=== PATIENT | female | born 1945 | race Caucasian/White ===

== ENCOUNTER → 2016-12-18 | Outpatient (CLI) | payer BC ==
[~2016-12-18] MED LIST: ENALAPRIL MALEATE; Effexor; MELO7.5T; TRHC5025; TRM50T
--- NOTE | 2016-12-18 11:59 | Diagnostic Imaging Report ---
Indication: Cough and shortness of breath over the last 7 days. Comparison study: Chest from 2009. Findings: Frontal and lateral views of the chest demonstrate the lungs to be clear. The heart, mediastinum and pulmonary vascularity are normal. Degenerative changes are present within the spine. There is a compression fracture of T12 which is probably old. Impression: There is a T12 compression fracture which is probably old. The lungs appear normal. Dictated by: Dictated on workstation # [id number]
== END ==
LOC: RAD 11:27
PROVIDERS: ATTEND Family Medicine
DX: R05 Cough (principal); R06.09 Other forms of dyspnea
CPT/HCPCS: 71020

== ENCOUNTER → 2017-12-10 | Outpatient (CLI) | payer BC ==
[~2017-12-10] MED LIST changes: +GADOBUTROL 7.5 MMOL/7.5 ML (GADAVIST) VIAL IV ONE
[2017-12-10 17:20] LABS: BUN/CREATININE RATIO 15; CREATININE SERUM 0.78 MG/DL (0.60-1.30); GFR ESTIMATED > 60
--- NOTE | 2017-12-10 18:39 | Diagnostic Imaging Report ---
PROCEDURE: US Carotid Duplex Bilateral. Indication: Slurred speech, unsteady gait starting 2 weeks ago. TECHNIQUE: Multiple real-time images with color Doppler imaging were performed. Doppler velocity and waveform data were obtained. The cervical carotid and vertebral arteries were evaluated. FINDINGS: Color and grayscale images demonstrate very mild scattered atheromatous plaque involving the carotid arteries, particularly at the carotid bifurcations. However, there are no abnormally elevated velocities or findings to suggest significant stenosis of the carotid arteries at this time. Peak systolic ICA/CCA ratio measures 1.0 bilaterally. External carotid arteries are patent. Vertebral arteries are with antegrade direction of flow. IMPRESSION: 1. Carotid Doppler imaging demonstrates no findings to suggest a hemodynamically significant stenosis at this time. Dictated by: Dictated on workstation # [id number]
== END ==
LOC: RAD 16:41
PROVIDERS: ATTEND Family Medicine
DX: G45.9 Transient cerebral ischemic attack, unspecified (principal); Q27.30 Arteriovenous malformation, site unspecified
CPT/HCPCS: 36415; 82565; 84520; 93880

== ENCOUNTER → 2017-12-16 | Outpatient (CLI) | payer BC ==
[~2017-12-16] MED LIST changes: -GADOBUTROL 7.5 MMOL/7.5 ML (GADAVIST) VIAL IV ONE
== END ==
LOC: CARD 11:21
PROVIDERS: ATTEND Family Medicine
DX: Q21.1 Atrial septal defect (principal); G45.9 Transient cerebral ischemic attack, unspecified
CPT/HCPCS: 93306

== ENCOUNTER → 2017-12-17 | Outpatient (CLI) | payer BC ==
[~2017-12-17] MED LIST changes: +CATHETER FLUSH 10 ML SYR IV PRN; +IOHEXOL 350 MG/ML 100 ML (OMNIPAQUE 350) VIAL IV ONE; +NS 100 ML (IVPB) BAG IV ONE
--- NOTE | 2017-12-17 14:52 | Diagnostic Imaging Report ---
PROCEDURE: CT angiography of the head and CT angiography of the neck with and without contrast. TECHNIQUE: Contiguous noncontrast images were obtained from the skull base through the vertex. After intravenous contrast administration, helical CT angiography of the neck was performed. Source data was reformatted into multiple MIP projections. Delayed post contrast acquisition was also obtained. INDICATION: CVA three weeks ago. FINDINGS: The recent MRI brain exam performed on 12/10/2017 noted a region of abnormal diffusion within the left middle cerebellar peduncle. This was felt to be related to a subacute post ischemic event. There also appeared to be a lack of a flow void in the left vertebral artery. The carotid Doppler exam performed on 12/10/2017 noted that there was antegrade flow within both vertebral arteries. On this exam, there is an area of diminished density in the left middle cerebellar peduncle. This would correspond to the finding of the previous MRI exam and is most likely a sequela of the patient's prior infarct in this area. Both vertebral arteries are opacified. The right vertebral artery appears normal; however, the left vertebral artery is much smaller than the right and there is very little contrast within the left vertebral artery between the base of the skull and C3. The left vertebral artery is well opacified near its junction with the right vertebral artery to form the basilar artery. The reason for the absence of contrast within the left vertebral artery between the base of the skull and C3 is not certain. This could be secondary to partial thrombosis of the vessel. A chronic dissection could also present in this manner. There is no hemodynamically significant stenosis of either carotid system. 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 This measures approximately 1.9 x 2.0 x 3.0 cm in maximum longitudinal, AP, and transverse dimensions. This finding seems similar to the previous CT head exam of 09/13/2009. There is no evidence for an aneurysm of the [place] and there is no hemodynamically significant stenosis identified. There is no abnormal enhancement on the post contrast series which would suggest a neoplastic or infectious process. There is no mass, shift of the midline, or hemorrhage noted. The ventricles are not abnormally dilated and stable in size when compared to the prior exam. The bone windows show no evidence for a fracture or for a destructive lesion. There is degenerative disc and bony disease at C5-C6 and C6-C7. There is no mass or adenopathy involving the neck. The lung apices are clear. IMPRESSION: 1. There is a short segment of the left vertebral artery between C3 and base of skull which is not well opacified. This finding may be secondary to partial occlusion of the vessels by thrombus. A chronic dissection could also present in this manner. If further evaluation is desired, then a conventional cerebral arteriogram would be recommended. 2. The right vertebral artery and the carotid systems are unremarkable for an acute or subacute abnormality. There is no sign of a hemodynamically significant stenosis either. 3. There is an area of diminished density in the left middle cerebellar peduncle. This would be consistent with the nonhemorrhagic infarct seen in this area on the recent MRI brain exam. There is no acute intracranial abnormality noted. 4. There is no sign of an aneurysm of the [place]. 5. 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 6. These results were discussed with Dr. Daniel. Dictated by: Dictated on workstation # [id number]
== END ==
LOC: RAD 12:21
PROVIDERS: ATTEND Family Medicine
DX: I63.9 Cerebral infarction, unspecified (principal); Q28.2 Arteriovenous malformation of cerebral vessels; G93.89 Other specified disorders of brain
CPT/HCPCS: 70496; 70498

== ENCOUNTER 2017-12-28 14:09 | Outpatient (RCR) | payer BC ==
[~2017-12-28 14:09] MED LIST changes: -CATHETER FLUSH 10 ML SYR IV PRN; -IOHEXOL 350 MG/ML 100 ML (OMNIPAQUE 350) VIAL IV ONE; -NS 100 ML (IVPB) BAG IV ONE
== END 2017-12-28 15:17 | disposition home or self-care (01) ==
PROVIDERS: ATTEND Family Medicine
DX: I69.398 Other sequelae of cerebral infarction (principal); R26.9 Unspecified abnormalities of gait and mobility

== ENCOUNTER 2018-01-11 20:04 | Emergency (ER) | payer BC ==
[~2018-01-11] VITALS: Ht 154.9 cm; Wt 65.3 kg
[2018-01-11] MEDS ORDERED: VENL75TA2 (20:33)
[2018-01-11] MEDS ORDERED: ASPI-808 PO (20:33)
[2018-01-11] MEDS ORDERED: ENAL20TA (20:33)
[2018-01-11] MEDS ORDERED: PRAV80TA2 (20:33)
[2018-01-11] MEDS ORDERED: METO-387 (20:33)
--- NOTE | 2018-01-11 22:42 | ED Cardiac General ---
History of Present Illness General Chief Complaint: Cardiac/General Problems Stated Complaint: ELEV BP Nursing Triage Note: PT CO OF HAVING HYPERTENSION FOR A COUPLE DAYS STATES HAD STROKE IN OCT Source: patient Exam Limitations: no limitations History of Present Illness Date Seen by Provider: Jan 11, 2018 Time Seen by Provider: 22:26 Initial Comments This 72-year-old woman presents to emergency room with primary complaint of hypertension. She noted her blood pressure at home was 190/101. She is primarily concerned because she had a CVA November 28 and is vigilant about monitoring her blood pressure to reduce risk. She recently started metoprolol 25 mg at bedtime. She has taken her dose tonight. Patient also reports a history of tachycardia and she is mildly tachycardic today as well. 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 She did have an echocardiogram performed last month. She does have some mild abnormalities on the echocardiogram. She denies any associated symptoms of hypertension such as headache, vision changes, or other neurologic deficits. Allergies and Home Medications Allergies Coded Allergies: Penicillins (Verified Allergy, Unknown, 12/06/07) Home Medications Aspirin 325 Mg Tablet, 325 MG PO DAILY, (Reported) Enalapril Maleate 20 Mg Tablet, (Reported) Metoprolol Succinate 25 Mg Tab.er.24h, (Reported) Pravastatin Sodium 80 Mg Tablet, (Reported) Venlafaxine HCl 75 Mg Tab.er.24, (Reported) Review of Systems Constitutional: no symptoms reported EENTM: No Symptoms Reported Respiratory: No Symptoms Reported Cardiovascular: See HPI Gastrointestinal: No Symptoms Reported Genitourinary: No Symptoms Reported Musculoskeletal: no symptoms reported Skin: no symptoms reported Psychiatric/Neurological: No Symptoms Reported Endocrine: No Symptoms Reported Past Ewwwjai-Odvaix-Jphzys Hx Patient Social History Alcohol Use: Regular Use Number of Drinks Today: 2 Alcohol Beverage of Choice: Vodka Recreational Drug Use: No Smoking Status: Current Everyday Smoker Type Used: Cigarettes Recent Foreign Travel: No Contact w/Someone Who Travel: No Recent Infectious Disease Expo: No Recent Hopitalizations: No Seasonal Allergies Seasonal Allergies: No Surgeries History of Surgeries: No Respiratory History of Respiratory Disorde: No Cardiovascular History of Cardiac Disorders: Yes (PT HAS HOLE IN HEART, tachycardia) Cardiac Disorders: Heart Murmur, Hypertension Neurological History of Neurological Disord: Yes Neurological Disorders: Stroke Reproductive System : No Hx Reproductive Disorders: No Genitourinary History of Genitourinary Disor: No Gastrointestinal History of Gastrointestinal Di: Yes Musculoskeletal History of Musculoskeletal Dis: No Endocrine History of Endocrine Disorders: No HEENT History of HEENT Disorders: No Cancer History of Cancer: No Psychosocial History of Psychiatric Problem: No Blood Transfusions History of Blood Disorders: No Physical Exam Vital Signs Vital Signs - First Documented 01/11/18 2 20:26 22:46 Temp 98.2 Pulse 103 Resp 18 B/P (MAP) 160/93 (115) Pulse Ox 98 O2 Delivery Room Air Capillary Refill : Less Than 3 Seconds General Appearance: No Apparent Distress, WD/WN HEENT: PERRL/EOMI, Normal ENT Inspection Neck: Normal Inspection Respiratory: Lungs Clear, Normal Breath Sounds, No Accessory Muscle Use, No Respiratory Distress Cardiovascular: No Edema, Systolic Murmur, Tachycardia Extremity: Normal Inspection, No Pedal Edema Neurologic/Psychiatric: Alert, Oriented x3, No Motor/Sensory Deficits, Normal 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 She had taken her metoprolol prior to coming. Because of the borderline tachycardia and continued hypertension, I had her take a second dose of her metoprolol (bringing her evening dose up to 50 mg). I also advised her to increase the dose to twice daily. She was encouraged to have her blood pressure checked within the next couple of days at Dr. Daniel's office and schedule a follow-up appointment. I also reviewed her echocardiogram and advised that she discuss a cardiology consultation with Dr. Daniel. Departure Impression Impression: Primary Impression: Hypertensive urgency Disposition: 01 HOME, SELF-CARE Condition: Stable Departure-Patient Inst. Decision time for Depature: 10:40 Referrals: KANE DANIEL DO (PCP/Family) Primary Care Physician Patient Instructions: High Blood Pressure (DC) Add. Discharge Instructions: Drink plenty of water. Eat a low salt diet. Avoid any stimulants that could elevate your blood pressure such as nicotine, excessive caffeine, energy drinks , decongestant medications, etc. Increase your metoprolol dose to twice daily. Take your next dose when you wake up in the morning. Contact Dr. Daniel's office tomorrow and arrange for a blood pressure check and a follow-up appointment. Return to the ER if you have worsening symptoms, especially if you have development of new symptoms such as headache, numbness, limb or facial weakness , confusion, vision changes, etc. All discharge instructions reviewed with patient and/or family. Voiced understanding. Copy Copies To 1: KANE DANIEL JOSHUA T MD Jan 11, 2018 22:42
[2018-01-11 22:46] VITALS: BP 187/98
== END 2018-01-11 22:44 | disposition home or self-care (01) ==
LOC: EDUNIT# 20:04 → ER 20:05
DX: I16.1 Hypertensive emergency (principal); I10 Essential (primary) hypertension; F17.210 Nicotine dependence, cigarettes, uncomplicated; Z86.73 Personal history of transient ischemic attack (TIA), and cerebral infarction without residual deficits; Z88.0 Allergy status to penicillin; Z79.82 Long term (current) use of aspirin
CPT/HCPCS: 99283

== ENCOUNTER 2018-01-29 05:52 | Observation (INO) | payer BC ==
[~2018-01-29] VITALS: Ht 157.5 cm; Wt 63.1 kg
[2018-01-29] VITALS (16 sets, daily range): BP systolic 148–213; BP diastolic 72–106
[~2018-01-29 05:52] MED LIST changes: +ASPI-808 PO; +ENAL20TA PO; +METO-387; +PRAV80TA2 PO; +VENL75TA2 PO
--- OUTSIDE RECORDS SUMMARY | 2018-01-29 05:58 | XMS REPORT | Continuity of Care Document ---
Author Author [facility] Organization [facility] Address Unknown Phone Unavailable Allergies Active Description Code Type Severity Reaction Onset Reported/Identified Relationship to Patient Clinical Status Yes Penicillins [id number] Drug Allergy Unknown N/A 12/06/2007 Medications There is no data. Problems Date Dx Coded Attending Type Code Diagnosis Diagnosed By 10/29/1516 KANE MICHEL DO Ot I69.398 OTHER SEQUELAE OF CEREBRAL INFARCTION 10/29/1516 KANE MICHEL DO S Ot R26.9 UNSPECIFIED ABNORMALITIES OF GAIT AND MO 01/01/2017 KANE MICHEL DO S Ot R05 COUGH 01/01/2017 REJI MICHEL DOLINE S Ot R06.09 OTHER FORMS OF DYSPNEA 12/16/2017 DESHAWN MICHEL DOQUELINE S Ot G45.9 TRANSIENT CEREBRAL ISCHEMIC ATTACK, [facility] 12/16/2017 DESHAWN MICHEL DOQUELINE S Ot 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, SITE UNSPECI 12/17/2017 DESHAWN MICHEL DOQUELINE S Ot G45.9 TRANSIENT CEREBRAL ISCHEMIC ATTACK, [facility] 12/17/2017 REJI MICHEL DOLINE S Ot Q21.1 ATRIAL SEPTAL DEFECT 12/18/2017 REJI MICHEL DOLINE S Ot G93.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 12/18/2017 DESHAWN MICHEL DOQUELINE S Ot I63.9 CEREBRAL INFARCTION, UNSPECIFIED 12/18/2017 DESHAWN MICHEL DOQUELINE S Ot 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 12/23/2017 DESHAWN MICHEL DOQUELINE S Ot G45.9 TRANSIENT CEREBRAL ISCHEMIC ATTACK, [facility] 12/23/2017 GARETTNDDESHAWN NELSON DOQUELINE S Ot 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, SITE UNSPECI 12/31/2017 REJI MICHEL DOLINE S Ot G45.9 TRANSIENT CEREBRAL ISCHEMIC ATTACK, [facility] 12/31/2017 OREKANE CHEATHAM DO Ot Q21.1 ATRIAL SEPTAL DEFECT 12/31/2017 KANE MICHEL DO Ot G93.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 12/31/2017 KANE MICHEL DO Ot I63.9 CEREBRAL INFARCTION, UNSPECIFIED 12/31/2017 KANE MICHEL DO Ot 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 01/11/2018 KRISTI MCQUEEN MD Ot F17.210 NICOTINE DEPENDENCE, CIGARETTES, UNCOMPL 01/11/2018 KRISTI MCQUEEN MD Ot I10 ESSENTIAL (PRIMARY) HYPERTENSION 01/11/2018 KRISTI MCQUEEN MD Ot I16.1 HYPERTENSIVE EMERGENCY 01/11/2018 KRISTI MCQUEEN MD Ot Z79.82 ALF (CURRENT) USE OF ASPIRIN 01/11/2018 KRISTI MCQUEEN MD Ot Z86.73 PRSNL HX OF TIA (TIA), AND CEREB INFRC W 01/11/2018 KRISTI MCQUEEN MD Ot Z88.0 ALLERGY STATUS TO PENICILLIN 01/13/2018 REJI MICHEL DOLINE Fidelia Ot I69.398 OTHER SEQUELAE OF CEREBRAL INFARCTION 01/13/2018 KANE MICHEL DO Ot R26.9 UNSPECIFIED ABNORMALITIES OF GAIT AND MO 01/13/2018 KRISTI MCQUEEN MD Ot F17.210 NICOTINE DEPENDENCE, CIGARETTES, UNCOMPL 01/13/2018 KRISTI MCQUEEN MD Ot I10 ESSENTIAL (PRIMARY) HYPERTENSION 01/13/2018 KRISTI MCQUEEN MD Ot I16.1 HYPERTENSIVE EMERGENCY 01/13/2018 KRISTI MCQUEEN MD Ot 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 Results Test Result Range [id number] - 12/10/17 16:59 Serum or plasma urea nitrogen measurement (mass/volume) 12 mg/dL 7-18 Serum or plasma creatinine measurement (mass/volume) 0.78 mg/dL 0.60-1.30 Serum or plasma urea nitrogen/creatinine mass ratio 15 NRG Serum or plasma creatinine measurement with calculation of estimated glomerular filtration rate > NRG Encounters ACCT No. Visit Date/Time Discharge Status Pt. Type Provider Facility Loc./Unit Complaint [id number] 01/11/2018 20:05:00 01/11/2018 22:44:00 DIS Emergency CHARISSE RUBY, KRISTI Jean-Baptiste [facility] ER ELEV BP [id number] 12/28/2017 14:09:00 12/28/2017 15:17:00 DIS Outpatient ORENDER DO, KANE S [facility] REHAB CEREBELLAR STROKE W GAIT ABNORMALITIES [id number] 12/17/2017 12:21:00 12/17/2017 23:59:59 CLS Outpatient ORENDER DO, KANE S [facility] RAD L MIDDLE CEREBRAL STROKE [id number] 12/16/2017 11:21:00 12/16/2017 23:59:59 CLS Outpatient ORENDER DO, KANE S [facility] CARD ASD,TIA [id number] 12/10/2017 17:30:00 12/10/2017 23:59:59 CLS Preadmit ORENDER DO, KANE S [facility] RAD TIA,AVM [id number] 12/10/2017 16:41:00 12/10/2017 23:59:59 CLS Outpatient ORENDER DO, KANE S [facility] RAD TIA [id number] 09/16/2017 07:46:00 09/16/2017 23:59:59 CLS Preadmit ORENDER DO, KANE S [facility] CARD CARDIAC MURMUR [id number] 12/18/2016 11:27:00 12/18/2016 23:59:59 CLS Outpatient ORENDER DO, KANE S [facility] RAD COUGH,DYSPNEA [id number] 06/16/2013 15:08:00 06/16/2013 23:59:59 CLS Outpatient [id number] 01/29/2018 05:54:00 ACT Emergency ELVIA RUBY, MELLISSAUS Pablo [facility] ER HIGH BLOOD PRESSURE 199/101
[2018-01-29 07:04] LABS: BASOPHILS # (AUTO) 0.1 10^3/uL (0.0-0.1); BASOPHILS % (AUTO) 1 % (0-10); EOSINOPHILS # (AUTO) 0.1 10^3/uL (0.0-0.3); EOSINOPHILS % (AUTO) 2 % (0-10); HEMATOCRIT 40 % (35-52); LYMPHOCYTES # (AUTO) 1.5 X 10^3 (1.0-4.0); LYMPHOCYTES % (AUTO) 18 % (12-44); MEAN CORPUSCULAR HEMOGLOBIN 31 PG (25-34); MEAN CORPUSCULAR HGB CONC 35 G/DL (32-36); MEAN CORPUSCULAR VOLUME 90 FL (80-99); MEAN PLATELET VOLUME 9.7 FL (7.4-10.4); MONOCYTES # (AUTO) 0.9 X 10^3 (0.0-1.0); MONOCYTES % (AUTO) 11 % (0-12); NEUTROPHILS # (AUTO) 5.8 X 10^3 (1.8-7.8); NEUTROPHILS % (AUTO) 69 % (42-75); PLATELET COUNT 316 10^3/uL (130-400); RED BLOOD COUNT 4.48 10^6/uL (4.35-5.85); RED CELL DISTRIBUTION WIDTH 13.5 % (10.0-14.5); WHITE BLOOD COUNT 8.4 10^3/uL (4.3-11.0)
[2018-01-29 07:15] LABS: INR 0.9 (0.8-1.4); PROTHROMBIN TIME PATIENT 12.6 SEC (12.2-14.7)
[2018-01-29 07:18] LABS: ALANINE AMINOTRANSFERASE 13 U/L (0-55); ALBUMIN 3.9 GM/DL (3.2-4.5); ALKALINE PHOSPHATASE 80 U/L (40-136); BUN/CREATININE RATIO 13; CALCIUM 8.6 MG/DL (8.5-10.1); CARBON DIOXIDE 20 MMOL/L (21-32); CHLORIDE 103 MMOL/L (98-107); CREATININE SERUM 0.76 MG/DL (0.60-1.30); GFR ESTIMATED > 60; GLUCOSE 131 MG/DL (70-105); MAGNESIUM 1.8 MG/DL (1.8-2.4); SODIUM 138 MMOL/L (135-145); TOTAL PROTEIN 6.5 GM/DL (6.4-8.2)
[2018-01-29] MEDS ORDERED: GADOBUTROL 7.5 MMOL/7.5 ML (GADAVIST) VIAL IV ONE (08:00)
--- NOTE | 2018-01-29 08:07 | ED Neurological Problem ---
General Chief Complaint: Cardiac/General Problems Stated Complaint: HIGH BLOOD PRESSURE 199/101 Nursing Triage Note: Patient to ED ambulatory with . Pt reports she checked her BP at 0520 and it is elevated 191/101. Pt has since took her BP medicines: Enalapril 20 mg and Metoprolol ER 50 mg. Pt also experienced hallucinations. No pain or SOA reported Nursing Sepsis Screen: No Definite Risk Source: patient, family Exam Limitations: no limitations History of Present Illness Date Seen by Provider: Jan 29, 2018 Time Seen by Provider: 06:00 Initial Comments This 72-year-old white female presents with an interesting history of having noted that her blood pressure was elevated a proximal 40 minutes prior to presentation emergency department. In addition the patient had had visual hallucinations that were self-limited and lasted approximately 20 minutes. Patient's presentation is complicated by the fact that she had a cerebellar stroke in October. The patient's had a history of poorly controlled hypertension in the last 3 months. She is under the care of Dr. MICHEL. The patient denies associated headache, blurred vision, tinnitus, stiff neck, numbness or weakness on either side of her body, difficulty in cerebral bradycardia, or fever or chill. Allergies and Home Medications Allergies Coded Allergies: Penicillins (Verified Allergy, Unknown, 12/06/07) Home Medications Aspirin 325 Mg Tablet, 325 MG PO DAILY, (Reported) Patient Home Medication List Home Medication List Reviewed: Yes Constitutional: see HPI, No chills, No fever, other (visual hallucinations) Eyes: Denies Blurred Vision, Denies Pain Ears, Nose, Mouth, Throat: denies ear pain Respiratory: No cough Cardiovascular: No chest pain Gastrointestinal: No abdominal pain, No nausea, No vomiting Genitourinary: no symptoms reported Musculoskeletal: no symptoms reported Skin: no symptoms reported Psychiatric/Neurological: No Symptoms Reported Endocrine: No Symptoms Reported Hematologic/Lymphatic: No Symptoms Reported Past [id number]-[id number] Hx Patient Social History Alcohol Use: Rarely Uses Number of Drinks Today: FF Alcohol Beverage of Choice: Vodka Recreational Drug Use: No Smoking Status: Current Everyday Smoker Type Used: Cigarettes Recent Foreign Travel: No Contact w/Someone Who Travel: No Recent Infectious Disease Expo: No Recent Hopitalizations: No Seasonal Allergies Seasonal Allergies: No Surgeries History of Surgeries: No Respiratory History of Respiratory Disorde: No Cardiovascular History of Cardiac Disorders: Yes (PT HAS HOLE IN HEART, TACHYCARDIA) Cardiac Disorders: Heart Murmur, Hypertension Neurological History of Neurological Disord: Yes Neurological Disorders: Stroke Reproductive System Hx Reproductive Disorders: No Genitourinary History of Genitourinary Disor: No Gastrointestinal History of Gastrointestinal Di: No Musculoskeletal History of Musculoskeletal Dis: No Endocrine History of Endocrine Disorders: No HEENT History of HEENT Disorders: No Cancer History of Cancer: No Psychosocial History of Psychiatric Problem: No Integumentary History of Skin or Integumenta: No Blood Transfusions History of Blood Disorders: No Reviewed Nursing Assessment Reviewed/Agree w Nursing PMH: Yes Physical Exam Vital Signs Vital Signs - First Documented 01/29/18 06:00 Temp 96.0 Pulse 62 Resp 20 B/P (MAP) 191/88 (122) Pulse Ox 96 O2 Delivery Room Air Capillary Refill : Less Than 3 Seconds General Appearance: WD/WN, no apparent distress HEENT: normal ENT inspection Neck: non-tender, full range of motion, other (no carotid bruits) Respiratory: lungs clear Cardiovascular: normal peripheral pulses, regular rate, rhythm, systolic murmur (grade 4/6 holosystolic ejection murmur.) Gastrointestinal: normal bowel sounds Back: normal inspection, no CVA tenderness Extremities: normal range of motion, non-tender 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, no motor/sensory deficits, alert, normal mood/affect Crainal Nerves: normal hearing, normal speech, PERRL Motor/Sensory: no motor deficit, no sensory deficit Skin: normal color, warm/dry Stroke NIH Stroke Scale Assessment Level of Consciousness: 0=Alert (0), Level of Consciousness-Questions: 0= Answers both month/age (0), LOC Commands: 0=Performs both tasks (0), Visual Charles: 0=No visual loss (0), Facial Movement (Facial Paresis): 0=Normal symmetrical mnt (0), Motor Function-Arms Right: 0=No drift (0), Motor Function- Arms Left: 0=No drift (0), Motor Function-Legs Right: 0=No drift (0), Motor Function-Legs Left: 0=No drift (0), Limb Ataxia: 0=Absent (0), Sensory: 0=Normal :no loss (0), Best Language: 0=No aphasia (0), Dysarthria: 0=Normal (0), Extinction & Inattention: 0=No abnormality (0), Total: 0 Progress/Results/Core Measures Results/Orders Lab Results Laboratory Tests Test 01/29/18 06:40 Range/Units White Blood Count 8.4 4.3-11.0 10^3/uL Red Blood Count 4.48 4.35-5.85 10^6/uL Hemoglobin 14.0 11.5-16.0 G/DL Hematocrit 40 35-52 % Mean Corpuscular Volume 90 80-99 FL Mean Corpuscular Hemoglobin 31 25-34 PG Mean Corpuscular Hemoglobin Concent 35 32-36 G/DL Red Cell Distribution Width 13.5 10.0-14.5 % Platelet Count 316 130-400 10^3/uL Mean Platelet Volume 9.7 7.4-10.4 FL Neutrophils (%) (Auto) 69 42-75 % Lymphocytes (%) (Auto) 18 12-44 % Monocytes (%) (Auto) 11 0-12 % Eosinophils (%) (Auto) 2 0-10 % Basophils (%) (Auto) 1 0-10 % Neutrophils # (Auto) 5.8 1.8-7.8 X 10^3 Lymphocytes # (Auto) 1.5 1.0-4.0 X 10^3 Monocytes # (Auto) 0.9 0.0-1.0 X 10^3 Eosinophils # (Auto) 0.1 0.0-0.3 10^3/uL Basophils # (Auto) 0.1 0.0-0.1 10^3/uL Prothrombin Time 12.6 12.2-14.7 SEC INR Comment 0.9 0.8-1.4 Activated Partial Thromboplast Time 26 24-35 SEC Sodium Level 138 135-145 MMOL/L Potassium Level 4.0 3.6-5.0 MMOL/L Chloride Level 103 98-107 MMOL/L Carbon Dioxide Level 20 L 21-32 MMOL/L Anion Gap 15 H 5-14 MMOL/L Blood Urea Nitrogen 10 7-18 MG/DL Creatinine 0.76 0.60-1.30 MG/DL Estimat Glomerular Filtration Rate > 60 BUN/Creatinine Ratio 13 Glucose Level 131 H 70-105 MG/DL Calcium Level 8.6 8.5-10.1 MG/DL Magnesium Level 1.8 1.8-2.4 MG/DL Total Bilirubin 1.0 0.1-1.0 MG/DL Aspartate Amino Transf (AST/SGOT) 25 5-34 U/L Alanine Aminotransferase (ALT/SGPT) 13 0-55 U/L Alkaline Phosphatase 80 40-136 U/L Myoglobin 40.0 10.0-92.0 NG/ML Troponin I < 0.30 <0.30 NG/ML Total Protein 6.5 6.4-8.2 GM/DL Albumin 3.9 3.2-4.5 GM/DL My Orders Orders - LORY, ARLEEN Mistry MD Cbc With Automated Diff (01/29/18 06:55) Magnesium (01/29/18 06:55) Chest 1 View, Ap/Pa Only (01/29/18 06:55) Ekg Tracing (01/29/18 06:55) Cardiac Profile 1 (01/29/18 06:55) Comprehensive Metabolic Panel (01/29/18 06:55) Myoglobin Serum (01/29/18 06:55) Protime With Inr (01/29/18 06:55) Partial Thromboplastin Time (01/29/18 06:55) O2 (01/29/18 06:55) Monitor-Rhythm Ecg Trace Only (01/29/18 06:55) Lipid Panel (01/30/18 06:00) Saline Lock/Iv-Start (01/29/18 06:55) Mri Brain W/O Contrast (01/29/18 06:56) Mra Neck With Contrast (01/29/18 06:56) Mra Head W/O Contrast (01/29/18 06:56) Metoprolol Tartrate Injection (Lopressor (01/29/18 09:00) Medications Given in ED Current Medications Medications Dose Ordered Sig/Gladys Route Start Time Stop Time Status Last Admin Dose Admin Gadobutrol 7.5 mmol ONCE ONCE IV 01/29/18 08:00 01/29/18 08:01 DC 01/29/18 08:12 6 MMOL Metoprolol Tartrate 5 mg ONCE ONCE IV 01/29/18 09:00 01/29/18 09:01 DC 01/29/18 09:27 5 MG Vital Signs/I&O Vital Sign - Last 12Hours 01/29/18 06:00 Temp 96.0 Pulse 62 Resp 20 B/P (MAP) 191/88 (122) Pulse Ox 96 O2 Delivery Room Air Blood Pressure Mean: 122 Progress Note : Time: 08:30 Progress Note I am currently awaiting the results of the patient's MR studies. The patient remains asymptomatic. Her blood pressure is still elevated. I've placed a call to the stroke neurologist at for their input. My intention is, if the MR is normal, the stroke neurologist agrees that no treatment is indicated or transfer necessary, that I will call Dr. Richard who is on for Dr. MICHEL to discuss the patient's presentation. 8:47 a.m. I discussed the patient's presentation with , stroke neurologist at [facility], and we were both in agreement with awaiting the results of the patient's MRI studies prior to administering the patient's daily baby aspirin, lowering the blood pressure with IV metoprolol gently, and having consultation with patient's primary care physician for possible observation. I visited with Dr. Richard agreed that we should admit the patient for further evaluation. The patient's blood pressure was still approximately 160 over 90. I ordered 5 mg of metoprolol IV. The patient's MR studies failed to demonstrate evidence of acute pathology. ECG Initial ECG Impression Date: Jan 29, 2018 Departure Communication (Admissions) Time/Spoke to Admitting Phy: 09:00 Impression Impression: Primary Impression: Elevated blood pressure reading Additional Impression: Neurologic abnormality Disposition: ADMITTED INPATIENT Condition: Improved Admissions Decision to Admit Reason: Admit from ER (General) Decision to Admit/Date: Jan 29, 2018 Time/Decision to Admit Time: 09:33 Departure-Patient Inst. Referrals: KANE MICHEL DO (PCP/Family) Primary Care Physician ARLEEN HENLEY MD Jan 29, 2018 08:07
--- NOTE | 2018-01-29 08:29 | Diagnostic Imaging Report ---
Indication: Slurred speech and difficulty walking, history of arteriovenous malformation. Procedure: MRI brain obtained without IV contrast and compared to 12/10/2017. Findings: Diffusion-weighted images demonstrate no new areas of diffusion signal abnormality. There is a small region of abnormal diffusion in the left cerebellum centrally which appears unchanged compared to the prior study and most like represents areas of subacute ischemic change. There are no new areas of ischemic change. There is again noted to be moderate chronic ischemic change in the pepe as well as in the deep white matter, similar to the previous study. 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 There are no subdural or epidural collections Ventricles are normal in size. Impression: Stable MRI of the brain compared with 12/10/2017. Area of acute ischemic change in the left cerebellum has not appreciably changed compared to the previous study. 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 There are moderate chronic ischemic changes in the deep white matter as well as in the pepe, also similar to the prior study. There is no new intracranial finding. Dictated by: Dictated on workstation # [id number]
--- NOTE | 2018-01-29 08:32 | Diagnostic Imaging Report ---
Indication: Slurred speech and difficulty walking. Procedure: MR angiography of the head obtained with time and flight images without contrast and 3-D reconstructions. Findings: The distal internal carotid arteries, anterior cerebral arteries, and middle cerebral arteries are patent. The distal vertebral arteries and basilar artery and posterior cerebral arteries are patent, although the distal left vertebral artery is fairly small, probably on a congenital basis. 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 This appears to be supplied by right MCA branches. There is no major vessel stenosis or occlusion or aneurysmal disease. 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 Impression: No evidence of significant intracranial stenosis or aneurysmal disease. The patient's known arteriovenous malformation is partially visualized on this study, see MRI brain dictation. There is a normal anatomic brain with a relatively small A1 segment of the right anterior cerebral artery and a relatively small distal left vertebral artery. Dictated by: Dictated on workstation # [id number]
[2018-01-29] MEDS ORDERED: meTOprolol 5 MG/5 ML (LOPRESSOR) VIAL IV ONE ×2 (09:00→22:00)
--- NOTE | 2018-01-29 09:59 | Diagnostic Imaging Report ---
PROCEDURE: MR angiography neck with contrast. TECHNIQUE: Contrast-enhanced MR angiography of the neck was performed. Source data was reformatted into rotating MIP projection. INDICATION: Slurred speech and difficulty walking. Patient has known intracranial AVM. COMPARISON: No prior MRA studies are available for comparison. FINDINGS: There is a normal three-vessel branching pattern to the aortic arch. The great vessel origins are widely patent. The common carotid arteries do show some tortuosity but are widely patent. The carotid bifurcations are unremarkable. There is moderate tortuosity of the internal carotid arteries as well, particularly the left but no internal carotid artery stenosis is seen. Bilateral vertebral arteries are patent. The right vertebral artery is dominant. Visualized basilar artery is patent. No stenosis or occlusion is seen. IMPRESSION: Unremarkable MRA of the neck. No carotid stenosis is identified. Dictated by: Dictated on workstation # [id number]
--- OUTSIDE RECORDS SUMMARY | 2018-01-29 10:25 | XMS REPORT | Continuity of Care Document ---
Author Author [facility] Organization [facility] Address Unknown Phone Unavailable Allergies Active Description Code Type Severity Reaction Onset Reported/Identified Relationship to Patient Clinical Status Yes Penicillins [id number] Drug Allergy Unknown N/A 12/06/2007 Medications There [...] S Ot G45.9 TRANSIENT CEREBRAL ISCHEMIC ATTACK, [facility] 12/16/2017 DESHAWN MICHEL DOQUELINE S Ot 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, SITE UNSPECI 12/17/2017 DESHAWN MICHEL DOQUELINE S Ot G45.9 TRANSIENT CEREBRAL ISCHEMIC ATTACK, [facility] 12/17/2017 REJI MICHEL DOLINE S Ot Q21.1 ATRIAL SEPTAL DEFECT 12/18/2017 REJI MICHEL DOLINE S Ot G93.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 12/18/2017 DESHAWN MICHEL DOQUELINE S Ot I63.9 CEREBRAL INFARCTION, UNSPECIFIED 12/18/2017 DESHAWN MICHEL DOQUELINE S Ot 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 12/23/2017 DESHAWN MICHEL DOQUELINE S Ot G45.9 TRANSIENT CEREBRAL ISCHEMIC ATTACK, [facility] 12/23/2017 GARETTNDDESHAWN NELSON DOQUELINE S Ot 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, SITE UNSPECI 12/31/2017 REJI MICHEL DOLINE S Ot G45.9 TRANSIENT CEREBRAL ISCHEMIC ATTACK, [facility] 12/31/2017 OREKANE CHEATHAM DO Ot Q21.1 ATRIAL [...] EMERGENCY 01/11/2018 KRISTI MCQUEEN MD Ot Z79.82 NURSING HOME (CURRENT) USE OF ASPIRIN 01/11/2018 KRISTI MCQUEEN [...] EMERGENCY 01/13/2018 KRISTI MCQUEEN MD Ot 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 Results Test Result Range [id number] - 12/10/17 16:59 Serum or plasma urea nitrogen measurement (mass/volume) 12 mg/dL 7-18 Serum or plasma creatinine measurement (mass/volume) 0.78 mg/dL 0.60-1.30 Serum or plasma urea nitrogen/creatinine mass ratio 15 NRG Serum or plasma creatinine measurement with calculation of estimated glomerular filtration rate > NRG Complete blood count (CBC) with automated white blood cell (WBC) differential - 01/29/18 06:40 Blood leukocytes automated count (number/volume) 8.4 10*3/uL 4.3-11.0 Blood erythrocytes automated count (number/volume) 4.48 10*6/uL 4.35-5.85 Venous blood hemoglobin measurement (mass/volume) 14.0 g/dL 11.5-16.0 Blood hematocrit (volume fraction) 40 % 35-52 Automated erythrocyte mean corpuscular volume 90 [foz_us] 80-99 Automated erythrocyte mean corpuscular hemoglobin (mass per erythrocyte) 31 pg 25-34 Automated erythrocyte mean corpuscular hemoglobin concentration measurement ( mass/volume) 35 g/dL 32-36 Automated erythrocyte distribution width ratio 13.5 % 10.0-14.5 Automated blood platelet count (count/volume) 316 10*3/uL 130-400 Automated blood platelet mean volume measurement 9.7 [foz_us] 7.4-10.4 Automated blood neutrophils/100 leukocytes 69 % 42-75 Automated blood lymphocytes/100 leukocytes 18 % 12-44 Blood monocytes/100 leukocytes 11 % 0-12 Automated blood eosinophils/100 leukocytes 2 % 0-10 Automated blood basophils/100 leukocytes 1 % 0-10 Blood neutrophils automated count (number/volume) 5.8 10*3 1.8-7.8 Blood lymphocytes automated count (number/volume) 1.5 10*3 1.0-4.0 Blood monocytes automated count (number/volume) 0.9 10*3 0.0-1.0 Automated eosinophil count 0.1 10*3/uL 0.0-0.3 Automated blood basophil count (count/volume) 0.1 10*3/uL 0.0-0.1 PT panel in platelet poor plasma by coagulation assay - 01/29/18 06:40 Prothrombin time (PT) in platelet poor plasma by coagulation assay 12.6 s 12.2-14.7 INR in platelet poor plasma or blood by coagulation assay 0.9 0.8-1.4 Activated partial thromboplastin time (aPTT) in platelet poor plasma bycoagulation assay - 01/29/18 06:40 Activated partial thromboplastin time (aPTT) in platelet poor plasma bycoagulation assay 26 s 24-35 Comprehensive metabolic panel - 01/29/18 06:40 Serum or plasma sodium measurement (moles/volume) 138 mmol/L 135-145 Serum or plasma potassium measurement (moles/volume) 4.0 mmol/L 3.6-5.0 Serum or plasma chloride measurement (moles/volume) 103 mmol/L 98-107 Carbon dioxide 20 mmol/L 21-32 Serum or plasma anion gap determination (moles/volume) 15 mmol/L 5-14 Serum or plasma urea nitrogen measurement (mass/volume) 10 mg/dL 7-18 Serum or plasma creatinine measurement (mass/volume) 0.76 mg/dL 0.60-1.30 Serum or plasma urea nitrogen/creatinine mass ratio 13 NRG Serum or plasma creatinine measurement with calculation of estimated glomerular filtration rate > NRG Serum or plasma glucose measurement (mass/volume) 131 mg/dL 70-105 Serum or plasma calcium measurement (mass/volume) 8.6 mg/dL 8.5-10.1 Serum or plasma total bilirubin measurement (mass/volume) 1.0 mg/dL 0.1-1.0 Serum or plasma alkaline phosphatase measurement (enzymatic activity/volume) 80 U/L 40-136 Serum or plasma aspartate aminotransferase measurement (enzymatic activity/ volume) 25 U/L 5-34 Serum or plasma alanine aminotransferase measurement (enzymatic activity/volume ) 13 U/L 0-55 Serum or plasma protein measurement (mass/volume) 6.5 g/dL 6.4-8.2 Serum or plasma albumin measurement (mass/volume) 3.9 g/dL 3.2-4.5 Magnesium - 01/29/18 06:40 Magnesium 1.8 mg/dL 1.8-2.4 Serum or plasma troponin i.cardiac measurement (mass/volume) - 01/29/18 06:40 Serum or plasma troponin i.cardiac measurement (mass/volume) < ng/ mL <0.30 Myoglobin, serum - 01/29/18 06:40 Myoglobin, serum 40.0 ng/mL 10.0-92.0 Encounters ACCT No. Visit Date/Time Discharge Status Pt. Type Provider Facility Loc./Unit Complaint [id number] 01/11/2018 20:05:00 01/11/2018 22:44:00 DIS Emergency CHARISSE RUBY, KRISTI [facility] ER ELEV BP [id number] 12/28/2017 14:09:00 12/28/2017 15:17:00 DIS Outpatient ORENDER DO, KANE S [facility] REHAB CEREBELLAR STROKE W GAIT ABNORMALITIES [id number] 12/17/2017 12:21:00 12/17/2017 23:59:59 CLS Outpatient ORENDER DO, KANE S [facility] RAD L MIDDLE CEREBRAL STROKE [id number] 12/16/2017 11:21:00 12/16/2017 23:59:59 CLS Outpatient ORENDER DO, KANE S [facility] CARD ASD,TIA [id number] 12/10/2017 17:30:00 12/10/2017 23:59:59 CLS Preadmit ORENDER DO, KANE S [facility] RAD TIA,AVM [id number] 12/10/2017 16:41:00 12/10/2017 23:59:59 CLS Outpatient ORENDER DO, KANE S [facility] RAD TIA [id number] 09/16/2017 07:46:00 09/16/2017 23:59:59 CLS Preadmit ORENDER DO, KANE S [facility] CARD CARDIAC MURMUR [id number] 12/18/2016 11:27:00 12/18/2016 23:59:59 CLS Outpatient ORENDER DO, KANE S [facility] RAD COUGH,DYSPNEA [id number] 06/16/2013 15:08:00 06/16/2013 23:59:59 CLS Outpatient [id number] 01/29/2018 09:54:00 ACT Inpatient АНДРЕЙ GORDON MD [facility] ICU ELEVATED BP AND SELF LIMITED NEURO C/O
[2018-01-29] MEDS ORDERED: hydrALAZINE (APESOLINE) 20 MG/ML VIAL IV NR ×2 (12:45→19:48)
[2018-01-29] MEDS ORDERED: METO-370 PO ×2 (12:51)
--- NOTE | 2018-01-29 15:49 | History & Physicial ---
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 SHE HAD RECENT HISTORY OF STROKE AND WAS WORRIED ABOUT RECURRENT STROKE. SHE NOTES THAT SHE CHECKED HER BLOOD PRESSURE AND IT WAS OVER 200/100 AND SHE PRESENTED TO THE EMERGENCY DEPARTMENT FOR AN ACUTE EVALUATION. IN THE ER - HER BLOOD PRESSURE WAS STILL ACUTELY ELEVATED, HER STROKE SCALE WAS 0 AND HER IMAGING WAS NEGATIVE, BUT PT WAS STILL FEELING OFF WITH HER BLOOD PRESSURE BEING ACUTELY SERIOUSLY ELEVATED. Date of Admission Jan 29, 2018 at 09:54 Date Seen by Provider: Jan 29, 2018 Time Seen by Provider: 15:15 Attending Physician Zoraida Michel DO Admitting Physician АНДРЕЙ GORDON MD Consult Allergies and Home Medications Allergies Coded Allergies: Penicillins (Verified Allergy, Unknown, 12/06/07) Home Medications Aspirin 325 Mg Tablet, 325 MG PO DAILY, (Reported) Enalapril Maleate 20 Mg Tablet, 20 MG PO BID, (Reported) Metoprolol Succinate 50 Mg Tab.er.24h, 50 MG PO DAILY, (Reported) Metoprolol Succinate 50 Mg Tab.er.24h, 100 MG PO 1700, (Reported) TAKES 2 (50MG) TABLETS Pravastatin Sodium 80 Mg Tablet, 80 MG PO DAILY, (Reported) LAST FILLED #90 09-15-17 Venlafaxine HCl 75 Mg Tab.er.24, 75 MG PO DAILY, (Reported) Patient Home Medication List Home Medication List Reviewed: Yes Past Qbnmbhq-Nvdwxx-Wruwuy Hx Patient Social History Employed/Student: retired Alcohol Use: Denies Use Number of Drinks Today: FF Alcohol Beverage of Choice: Vodka Recreational Drug Use: No Smoking Status: Current Everyday Smoker Type Used: Cigarettes 2nd Hand Smoke Exposure: Yes Physical Abuse Screen: No Sexual Abuse: No Recent Foreign Travel: No Contact w/other who traveled: No Recent Hopitalizations: No Recent Infectious Disease Expo: No Immunizations Up To Date Date of Influenza Vaccine: Sep 16, 2017 Seasonal Allergies Seasonal Allergies: No Surgeries No Respiratory No Cardiovascular Yes Heart Murmur, High Cholesterol, Hypertension Neurological Yes Stroke Reproductive System : No Hx Reproductive Disorders: No Sexually Transmitted Disease: No 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 Genitourinary No Gastrointestinal No Musculoskeletal No Endocrine History of Endocrine Disorders: No HEENT History of HEENT Disorders: No Loss of Vision: Denies Hearing Impairment: Denies Cancer No Psychosocial History of Psychiatric Problem: Yes Behavioral Health Disorders: Depression Integumentary History of Skin or Integumenta: No Blood Transfusions History of Blood Disorders: No Reviewed Nursing Assessment Reviewed/Agree w Nursing PMH: Yes Family Medical History Significant Family History: Heart Disease, Hypertension Constitutional: No chills, No fever, No malaise, weakness EENTM: No hoarseness, No mouth pain, No throat pain Respiratory: No cough, No dyspnea on exertion, No short of breath Cardiovascular: No chest pain, No edema, No palpitations Gastrointestinal: No constipation, No diarrhea, No nausea, No vomiting Genitourinary: no symptoms reported Musculoskeletal: No back pain, No muscle stiffness Skin: no symptoms reported Psychiatric/Neurological: Denies Anxiety, Depressed, Weakness Physical Exam Vital Signs Vital Signs - First Documented 01/29/18 06:00 Temp 96.0 Pulse 62 Resp 20 B/P (MAP) 191/88 (122) Pulse Ox 96 O2 Delivery Room Air Capillary Refill : Less Than 3 Seconds General Appearance: No Apparent Distress, WD/WN Eyes: Bilateral Eye Normal Inspection, Bilateral Eye PERRL, Bilateral Eye EOMI HEENT: PERRL/EOMI, Pharynx Normal Neck: Full Range of Motion, Supple Respiratory: Chest Non Tender, Lungs Clear, Normal Breath Sounds, No Accessory Muscle Use, No Respiratory Distress Cardiovascular: Regular Rate, Rhythm, No Edema, Normal Peripheral Pulses, Systolic Murmur (III/ COURTNEY) Gastrointestinal: Normal Bowel Sounds, No Organomegaly, No Pulsatile Mass, Non Tender, Soft Rectal: Deferred Back: Normal Inspection, No CVA Tenderness, No Vertebral Tenderness Extremity: Normal Capillary Refill, Normal Inspection, Normal Range of Motion, Non Tender, No Calf Tenderness, No Pedal Edema Neurologic/Psychiatric: Alert, Oriented x3, No Motor/Sensory Deficits, Normal 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 PT REPORTS APPT WITH DR. MICHEL ON THURSDAY OF NEXT WEEK. HYPERLIPIDEMIA - HOLD HOME MEDICATION - WILL RESUME WHEN SHE IS DISCHARGED. STROKE - RESIDUAL SYMPTOMS OF RIGHT FOOT WEAKNESS - CONTINUE WITH ASPIRIN. DEPRESSION - RESUME VENLAFAXINE TOBACCOISM - START ON NICODERM PATCH PT DOES NOT NEED SCD'S OR LOVENOX HER STAY AT THE HOSPITAL IS EXPECTED TO END TOMORROW. GI PROPHYLAXIS ALSO NOT NEEDED AT THIS TIME. Problems: Admission Diagnosis HYPERTENSIVE URGENCY HYPERLIPIDEMIA STROKE DEPRESSION TOBACCOISM Admission Status: Observation Clinical Quality Measures DVT/VTE Risk/Contraindication: Risk Factor Score Per Nursin RFS Level Per Nursing on Admit: 3=High АНДРЕЙ GORDON MD Jan 29, 2018 15:49
[2018-01-29] MEDS: meTOproloL SUCCINATE 50 MG (TOPROL XL) TAB PO SCH (16:35)
[2018-01-29] MEDS: NICOTINE 14 MG (NICODERM) PATCH TD SCH (19:11)
[2018-01-29] MEDS ORDERED: hydrALAZINE (APESOLINE) 20 MG/ML VIAL ONE (19:45)
[2018-01-29] MEDS ORDERED: ALPRAZolam 0.25 MG (XANAX) TAB PO PRN (20:30)
[2018-01-29] MEDS ORDERED: NON-FORMULARY MEDICATION 1 EA EA (Enalapril Maleate 20 MG) PO SCH (21:00)
[2018-01-29] MEDS: ENALAPRIL 10 MG (VASOTEC) TAB PO SCH (21:01)
[2018-01-29] MEDS ORDERED: NS IV 500 ML 500 ML IV ONE (22:00)
[2018-01-29] MEDS ORDERED: ONDANSETRON 4 MG/2 ML (SDV) Z0FRAN IVP ONE (22:00)
[2018-01-30] VITALS (14 sets, daily range): BP systolic 102–155; BP diastolic 67–96
[2018-01-30 04:05] LABS: CHOLESTEROL 187 MG/DL (< 200); HDL CHOLESTEROL 42 MG/DL (40-60); TRIGLYCERIDES 157 MG/DL (<150); VLDL CHOLESTEROL 31 MG/DL (5-40)
[2018-01-30] MEDS: VENlafaxine XR 75 MG (EFFEXOR XR) CAP PO SCH (06:46)
[2018-01-30] MEDS ORDERED: VENlafaxine 75 MG (EFFEXOR) TAB PO SCH (07:00)
[2018-01-30] MEDS: ENALAPRIL 10 MG (VASOTEC) TAB PO SCH ×2 (08:13→20:52)
[2018-01-30] MEDS: ASPIRIN 325 MG (5 GR) TABLET PO SCH (08:13)
[2018-01-30] MEDS: NICOTINE 14 MG (NICODERM) PATCH TD SCH (08:14)
[2018-01-30] MEDS: NICOTINE PATCH REMOVAL TP SCH (08:14)
[2018-01-30] MEDS: meTOproloL SUCCINATE 50 MG (TOPROL XL) TAB PO SCH ×2 (08:14→17:10)
[2018-01-30] MEDS ORDERED: NON-FORMULARY MEDICATION 1 EA EA (Venlafaxine HCl (Venlafaxine HCl ER) 75 MG) PO SCH (09:00)
--- NOTE | 2018-01-30 13:18 | Progress Note-Hospitalist ---
Standard Progress Note Progress Notes/Assess & Plan Date Seen 01/30/18 Time Seen by Provider: 13:15 Assess & Plan/Chief Complaint The patient is a 72-year-old white female patient of Dr. Karina Bose for whom I am covering. She apparently had a small CVA about the first of the year. She was found to have extremely high blood pressure yesterday and was admitted by Dr. Richard in Dr. Daniel's absence. She was initially quite hypertensive with systolic Blood pressures in the 170-210 range and the highest diastolic at 106. Hydralazine was added and that her range is now systolic of 1022 135/67-94. She will be transferred to the floor for ambulation. Physical exam shows a pleasant 72-year-old white female who appears her stated age. Lungs are clear to auscultation. CV is regular without murmur. Abdomen is soft. There is no pedal edema. Impression: History of recent small CVA without evident sequelae. 2.severe hypertension. Plan: Move to medical floor for ambulation with consideration of discharge tomorrow. Labs Laboratory Tests 01/29/18 06:40 PERLITA YOUNG MD Jan 30, 2018 13:18
[2018-01-31] VITALS: BP 121/69
[2018-01-31 04:00] VITALS: BP 133/68
[2018-01-31] MEDS: VENlafaxine XR 75 MG (EFFEXOR XR) CAP PO SCH (04:59)
[2018-01-31 08:00] VITALS: BP 121/61
[2018-01-31] MEDS: ASPIRIN 325 MG (5 GR) TABLET PO SCH (08:38)
[2018-01-31] MEDS: ENALAPRIL 10 MG (VASOTEC) TAB PO SCH (08:38)
[2018-01-31] MEDS: meTOproloL SUCCINATE 50 MG (TOPROL XL) TAB PO SCH (08:38)
[2018-01-31] MEDS: NICOTINE 14 MG (NICODERM) PATCH TD SCH (08:38)
[2018-01-31] MEDS: NICOTINE PATCH REMOVAL TP SCH (08:39)
--- NOTE | 2018-01-31 13:04 | Progress Note-Hospitalist ---
Standard Progress Note Progress Notes/Assess & Plan Date Seen 01/31/18 Time Seen by Provider: 13:02 Diagnosis The patient's blood pressure by a large is greatly improved as compared to admission. She is ready for discharge. She already has a previously scheduled appointment at Dr. Daniel's tomorrow and will keep that for future planning. Physical exam: Lungs are clear to auscultation. CV is regular without murmur. Abdomen is soft. Extremities show no pedal edema. Impression: Accelerated hypertension. 2.confusion possibly secondary to severe hypertension. Plan: Discharge. SEE discharge sequence for routines and medications. PERLITA YOUNG MD Jan 31, 2018 13:04
[2018-01-31] MEDS ORDERED: HYDR-3922 PO (13:07)
--- NOTE | 2018-01-31 13:10 | Discharge Instructions ---
Discharge Instructions Patient Instructions Patient Instructions: Resume usual activities. Keep appointment with Dr. Daniel for tomorrow. Medications as on the discharge sequence. There is a prescription for hydralazine that will last one week PERLITA YOUNG MD Jan 31, 2018 13:10
[2018-01-31 13:47] VITALS: BP 121/61
== END 2018-01-31 13:07 | disposition home or self-care (01) ==
LOC: EDUNIT# 05:52 → ER 05:54 → ICU 09:54 → UNDOADMOB 09:54 → ICU 11:21 → 4TH 01-30 14:12 → ICU 01-30 14:12 → UNDODISOB 01-31 13:52
PROVIDERS: ADMIT Family Medicine; ATTEND Family Medicine
DX: I16.0 Hypertensive urgency (principal); R44.1 Visual hallucinations; F17.210 Nicotine dependence, cigarettes, uncomplicated; F32.9 Major depressive disorder, single episode, unspecified; E78.5 Hyperlipidemia, unspecified; I69.341 Monoplegia of lower limb following cerebral infarction affecting right dominant side; Z79.82 Long term (current) use of aspirin; Z79.899 Other long term (current) drug therapy
CPT/HCPCS: 36415; 70544; 70548; 70551; 71045; 80053; 80061; 83735; 83874; 84484; 85025; 85610; 85730; 87081; 93041; 96374

== ENCOUNTER 2018-03-04 22:44 | Emergency (ER) | payer BC ==
[~2018-03-04] VITALS: Ht 157.5 cm; Wt 63.5 kg
[~2018-03-04 22:44] MED LIST changes: +HYDR-3922 PO; +METO-370 PO
--- OUTSIDE RECORDS SUMMARY | 2018-03-04 22:49 | XMS REPORT | Continuity of Care Document ---
Author Author [facility] Organization [facility] Address Unknown Phone Unavailable Allergies Active Description Code Type Severity Reaction Onset Reported/Identified Relationship to Patient Clinical Status Yes Penicillins [id number] Drug Allergy Unknown N/A 12/06/2007 Medications There is no data. Problems Date Dx Coded Attending Type Code Diagnosis Diagnosed By 10/29/1516 KANE DANIEL DO Ot I69.398 OTHER SEQUELAE OF CEREBRAL INFARCTION 10/29/1516 DESHAWN DANIEL DOQUELINE S Ot R26.9 UNSPECIFIED ABNORMALITIES OF GAIT AND MO 01/01/2017 REJI DANIEL DOLINE S Ot R05 COUGH 01/01/2017 DESHAWN DANIEL DOQUELINE S Ot R06.09 OTHER FORMS OF DYSPNEA 12/16/2017 DESHAWN DANIEL DOQUELINE S Ot G45.9 TRANSIENT CEREBRAL ISCHEMIC ATTACK, [facility] 12/16/2017 DESHAWN DANIEL DOQUELINE S Ot 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, SITE UNSPECI 12/17/2017 DESHAWN DANIEL DOQUELINE S Ot G45.9 TRANSIENT CEREBRAL ISCHEMIC ATTACK, [facility] 12/17/2017 GARETTNDDESHAWN NELSON DOQUELINE S Ot Q21.1 ATRIAL SEPTAL DEFECT 12/18/2017 DESHAWN DANIEL DOQUELINE S Ot G93.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 12/18/2017 ANAND RODRIGUEZ KANE S Ot I63.9 CEREBRAL INFARCTION, UNSPECIFIED 12/18/2017 GARETTNDDESHAWN NELSON DOQUELINE S Ot 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 12/23/2017 DESHAWN DANIEL DOQUELINE S Ot G45.9 TRANSIENT CEREBRAL ISCHEMIC ATTACK, [facility] 12/23/2017 GARETTNDDESHAWN NELSON DOQUELINE S Ot 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, SITE UNSPECI 12/28/2017 REJI DANIEL DOLINE S Ot I69.398 OTHER SEQUELAE OF CEREBRAL INFARCTION 12/28/2017 DESHAWN DANIEL DOQUELINE S Ot R26.9 UNSPECIFIED ABNORMALITIES OF GAIT AND MO 12/31/2017 ANAND RODRIGUEZ, KANE S Ot G45.9 TRANSIENT CEREBRAL ISCHEMIC ATTACK, [facility] 12/31/2017 KANE DANIEL DO Ot Q21.1 ATRIAL SEPTAL DEFECT 12/31/2017 ANAND RODRIGUEZ, KANE S Ot G93.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 12/31/2017 KANE DANIEL DO S Ot I63.9 CEREBRAL INFARCTION, UNSPECIFIED 12/31/2017 ANAND RODRIGUEZ, KANE S Ot 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 01/11/2018 KRISTI MCQUEEN MD Ot F17.210 NICOTINE DEPENDENCE, CIGARETTES, UNCOMPL 01/11/2018 KRISTI MCQUEEN MD Ot I10 ESSENTIAL (PRIMARY) HYPERTENSION 01/11/2018 KRISTI MCQUEEN MD Ot I16.1 HYPERTENSIVE EMERGENCY 01/11/2018 KRISTI MCQUEEN MD Ot Z79.82 LONG-TERM (CURRENT) USE OF ASPIRIN 01/11/2018 KRISTI MCQUEEN MD Ot Z86.73 PRSNL HX OF TIA (TIA), AND CEREB INFRC W 01/11/2018 KRISTI MCQUEEN MD Ot Z88.0 ALLERGY STATUS TO PENICILLIN 01/13/2018 KANE DANIEL DO Ot I69.398 OTHER SEQUELAE OF CEREBRAL INFARCTION 01/13/2018 KANE DANIEL DO Ot R26.9 UNSPECIFIED ABNORMALITIES OF GAIT AND MO 01/13/2018 KRISTI MCQUEEN MD Ot F17.210 NICOTINE DEPENDENCE, CIGARETTES, UNCOMPL 01/13/2018 KRISTI MCQUEEN MD Ot I10 ESSENTIAL (PRIMARY) HYPERTENSION 01/13/2018 KRISTI MCQUEEN MD Ot I16.1 HYPERTENSIVE EMERGENCY 01/13/2018 KRISTI MCQUEEN MD Ot Z79.82 TITLE OFFICER (CURRENT) USE OF ASPIRIN 01/13/2018 KRISTI MCQUEEN MD Ot Z86.73 PRSNL HX OF TIA (TIA), AND CEREB INFRC W 01/13/2018 KRISTI MCQUEEN MD Ot Z88.0 ALLERGY STATUS TO PENICILLIN 01/31/2018 АНДРЕЙ GORDON MD Ot E78.5 HYPERLIPIDEMIA, UNSPECIFIED 01/31/2018 АНДРЕЙ GORDON MD Ot F17.210 NICOTINE DEPENDENCE, CIGARETTES, UNCOMPL 01/31/2018 АНДРЕЙ GORDON MD Ot F32.9 MAJOR DEPRESSIVE DISORDER, SINGLE EPISOD 01/31/2018 АНДРЕЙ GORDON MD Ot I16.0 HYPERTENSIVE URGENCY 01/31/2018 АНДРЕЙ GORDON MD Ot 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 01/31/2018 АНДРЕЙ GORDON MD Ot R44.1 VISUAL HALLUCINATIONS 01/31/2018 АНДРЕЙ GORDON MD Ot Z79.82 TITLE OFFICER (CURRENT) USE OF ASPIRIN 01/31/2018 АНДРЕЙ GORDON MD Ot Z79.899 OTHER TITLE OFFICER (CURRENT) DRUG THERAPY 01/31/2018 АНДРЕЙ GORDON MD Ot E78.5 HYPERLIPIDEMIA, UNSPECIFIED 01/31/2018 АНДРЕЙ GORDON MD Ot F17.210 NICOTINE DEPENDENCE, CIGARETTES, UNCOMPL 01/31/2018 АНДРЕЙ GORDON MD Ot F32.9 MAJOR DEPRESSIVE DISORDER, SINGLE EPISOD 01/31/2018 АНДРЕЙ GORDON MD Ot I16.0 HYPERTENSIVE URGENCY 01/31/2018 АНДРЕЙ GORDON MD Ot 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 Results Test Result Range [id number] - 12/10/17 16:59 Serum or plasma urea [...] 01/29/18 06:40 Myoglobin, serum 40.0 ng/mL 10.0-92.0 Methicillin resistant Staphylococcus aureus (MRSA) screening culture - 12:14 Methicillin resistant Staphylococcus aureus (MRSA) screening culture NEG [facility] Lipid 1996 panel - 01/30/18 03:25 Serum or plasma triglyceride measurement (mass/volume) 157 mg/dL <150 Serum or plasma cholesterol measurement (mass/volume) 187 mg/dL < 200 Serum or plasma cholesterol in HDL measurement (mass/volume) 42 mg/ dL 40-60 Cholesterol in LDL [mass/volume] in serum or plasma by direct assay 129 mg/dL 1-129 Serum or plasma cholesterol in VLDL measurement (mass/volume) 31 mg/ dL 5-40 Encounters ACCT No. Visit Date/Time Discharge Status Pt. Type Provider Facility Loc./Unit Complaint [id number] 01/29/2018 09:54:00 01/31/2018 13:52:00 DIS Inpatient HEIDI RUBY, АНДРЕЙ Brown [facility] 4TH ELEVATED BP AND SELF LIMITED NEURO C/O [id number] 01/11/2018 20:05:00 01/11/2018 22:44:00 DIS Emergency CHARISSE RUBY, KRISTI [facility] ER ELEV BP [id number] 12/28/2017 14:09:00 12/28/2017 15:17:00 DIS Outpatient ANAND DO, KANE S [facility] REHAB CEREBELLAR STROKE W GAIT ABNORMALITIES [id number] 12/17/2017 12:21:00 12/17/2017 23:59:59 CLS Outpatient GARETTNDER DO, KANE S [facility] RAD L MIDDLE CEREBRAL STROKE [id number] 12/16/2017 11:21:00 12/16/2017 23:59:59 CLS Outpatient ORENDOMAR DO, KANE S [facility] CARD ASD,TIA [id number] 12/10/2017 17:30:00 12/10/2017 23:59:59 CLS Preadmit ORENDER DO, KANE S [facility] RAD TIA,AVM [id number] 12/10/2017 16:41:00 12/10/2017 23:59:59 CLS Outpatient ORENDER DO, KANE S [facility] RAD TIA [id number] 09/16/2017 07:46:00 09/16/2017 23:59:59 CLS Preadmit ORENDER DO, KANE S [facility] CARD CARDIAC MURMUR [id number] 12/18/2016 11:27:00 12/18/2016 23:59:59 CLS Outpatient ORENDER DO, KANE S [facility] RAD COUGH,DYSPNEA [id number] 06/16/2013 15:08:00 06/16/2013 23:59:59 CLS Outpatient 02/08/18 01/19/2018 10:00:01 01/19/2018 23:59:59 CLS Outpatient Kane Daniel
[2018-03-04] MEDS ORDERED: meTOprolol 5 MG/5 ML (LOPRESSOR) VIAL IV ONE (23:00)
[2018-03-04] MEDS ORDERED: ONDANSETRON 4 MG/2 ML (SDV) Z0FRAN IVP ONE (23:00)
[2018-03-04 23:14] LABS: BASOPHILS # (AUTO) 0.1 10^3/uL (0.0-0.1); BASOPHILS % (AUTO) 1 % (0-10); EOSINOPHILS # (AUTO) 0.2 10^3/uL (0.0-0.3); EOSINOPHILS % (AUTO) 2 % (0-10); HEMATOCRIT 39 % (35-52); HEMOGLOBIN 13.5 G/DL (11.5-16.0); LYMPHOCYTES # (AUTO) 1.6 X 10^3 (1.0-4.0); LYMPHOCYTES % (AUTO) 19 % (12-44); MEAN CORPUSCULAR HEMOGLOBIN 31 PG (25-34); MEAN CORPUSCULAR HGB CONC 34 G/DL (32-36); MEAN CORPUSCULAR VOLUME 91 FL (80-99); MONOCYTES # (AUTO) 0.9 X 10^3 (0.0-1.0); MONOCYTES % (AUTO) 10 % (0-12); NEUTROPHILS # (AUTO) 5.8 X 10^3 (1.8-7.8); NEUTROPHILS % (AUTO) 68 % (42-75); PLATELET COUNT 316 10^3/uL (130-400); RED BLOOD COUNT 4.35 10^6/uL (4.35-5.85); RED CELL DISTRIBUTION WIDTH 16.1 % (10.0-14.5); WHITE BLOOD COUNT 8.6 10^3/uL (4.3-11.0)
[2018-03-04 23:35] LABS: BUN/CREATININE RATIO 13; CARBON DIOXIDE 22 MMOL/L (21-32); CHLORIDE 106 MMOL/L (98-107); CREATININE SERUM 0.67 MG/DL (0.60-1.30); GFR ESTIMATED > 60; GLUCOSE 113 MG/DL (70-105); MAGNESIUM 1.4 MG/DL (1.8-2.4); POTASSIUM 3.9 MMOL/L (3.6-5.0); SODIUM 140 MMOL/L (135-145)
[2018-03-05] MEDS ORDERED: MAGNESIUM OXIDE (MAG-OX)400 MG TAB PO ONE
[2018-03-05] MEDS ORDERED: RX-ONDANSETRON 4 MG ODT (ZOFRAN) PPK #4 SL STA (00:33)
--- NOTE | 2018-03-05 00:33 | ED Cardiac General ---
History of Present Illness General Chief Complaint: Cardiac/General Problems Stated Complaint: HIGH BP Nursing Triage Note: PT TO ED 5 W/ C/O HIGH BLOOD PRESSURE ONSET THIS EVENING. PT REPORTS HX OF STROKE IN OCTOBER ET HAS EPISODES OF ELEVATED BLOOD PRESSURE SINCE Source: patient, old records Exam Limitations: no limitations History of Present Illness Date Seen by Provider: Mar 05, 2018 Time Seen by Provider: 23:00 Initial Comments This 73-year-old woman presents to the emergency room with complaints of uncontrolled hypertension. She has had symptoms of headache and nausea and vomiting associated with the hypertension. She takes metoprolol 100 mg 3 times daily. She normally takes her third dose at 01:00. She took this dose early because of hypertension noted at home. However, she then vomited and thinks she vomited up the tablet. She was admitted for hypertensive urgency recently. She has a referral to a vrt mechanic in [place] for mid March. She denies any use of stimulant medications, herbal supplements, caffeine, etc. Allergies and Home Medications Allergies Coded Allergies: Penicillins (Verified Allergy, Unknown, 12/06/07) Home Medications Aspirin 325 Mg Tablet, 325 MG PO DAILY, (Reported) Enalapril Maleate 20 Mg Tablet, 20 MG PO BID, (Reported) Hydralazine HCl 10 Mg Tablet, 10 MG PO Q8HR Prescribed by: PERLITA YOUNG on 01/31/18 1307 Metoprolol Succinate 50 Mg Tab.er.24h, 50 MG PO DAILY, (Reported) Metoprolol Succinate 50 Mg Tab.er.24h, 100 MG PO 1700, (Reported) TAKES 2 (50MG) TABLETS Pravastatin Sodium 80 Mg Tablet, 80 MG PO DAILY, (Reported) LAST FILLED #90 09-15-17 Venlafaxine HCl 75 Mg Tab.er.24, 75 MG PO DAILY, (Reported) Patient Home Medication List Home Medication List Reviewed: Yes Review of Systems Constitutional: no symptoms reported EENTM: No Symptoms Reported Respiratory: No Symptoms Reported Cardiovascular: See HPI Gastrointestinal: See HPI Genitourinary: No Symptoms Reported Musculoskeletal: no symptoms reported Skin: no symptoms reported Psychiatric/Neurological: See HPI Endocrine: No Symptoms Reported Hematologic/Lymphatic: No Symptoms Reported Past Jmqwtiy-Ebnfzt-Osoxgu Hx Patient Social History Alcohol Use: Denies Use Number of Drinks Today: FF Alcohol Beverage of Choice: Vodka Recreational Drug Use: No Smoking Status: Current Everyday Smoker Type Used: Cigarettes 2nd Hand Smoke Exposure: Yes Recent Foreign Travel: No Contact w/Someone Who Travel: No Recent Infectious Disease Expo: No Recent Hopitalizations: No Physical Abuse: No Sexual Abuse: No Mistreated: No Fear: No Immunizations Up To Date Date of Influenza Vaccine: Sep 16, 2017 Seasonal Allergies Seasonal Allergies: No Past Medical History Surgeries: No Respiratory: No Cardiac: Yes Heart Murmur, High Cholesterol, Hypertension, Valvular Heart Disease Neurological: Yes Stroke 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 Sexually Transmitted Disease: No HIV/AIDS: No Genitourinary: No Gastrointestinal: No Musculoskeletal: No Endocrine: No HEENT: No Loss of Vision: Denies Hearing Impairment: Denies Cancer: No Psychosocial: Yes Depression Nursing Suicide Risk Score: 0 Integumentary: No Blood Disorders: No Family Medical History Heart Disease, Hypertension Physical Exam Vital Signs Vital Signs - First Documented 03/04/18 22:47 Temp 95.6 Pulse 89 Resp 20 B/P (MAP) 100/106 (104) Pulse Ox 99 O2 Delivery Room Air Capillary Refill : Less Than 3 Seconds General Appearance: No Apparent Distress, WD/WN HEENT: PERRL/EOMI, Normal ENT Inspection Neck: Normal Inspection Respiratory: Lungs Clear, Normal Breath Sounds, No Accessory Muscle Use, No Respiratory Distress Cardiovascular: Regular Rate, Rhythm, No Edema, Systolic Murmur Gastrointestinal: Normal Bowel Sounds, Non Tender, Soft Extremity: Normal Inspection, No Pedal Edema Neurologic/Psychiatric: Alert, Oriented x3, No Motor/Sensory Deficits, Normal 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, 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 Norm as Tested Skin: Normal Color, Warm/Dry Progress/Results/Core Measures Lab Results Laboratory Tests Test 03/04/18 23:00 Range/Units White Blood Count 8.6 4.3-11.0 10^3/uL Red Blood Count 4.35 4.35-5.85 10^6/uL Hemoglobin 13.5 11.5-16.0 G/DL Hematocrit 39 35-52 % Mean Corpuscular Volume 91 80-99 FL Mean Corpuscular Hemoglobin 31 25-34 PG Mean Corpuscular Hemoglobin Concent 34 32-36 G/DL Red Cell Distribution Width 16.1 H 10.0-14.5 % Platelet Count 316 130-400 10^3/uL Mean Platelet Volume 10.0 7.4-10.4 FL Neutrophils (%) (Auto) 68 42-75 % Lymphocytes (%) (Auto) 19 12-44 % Monocytes (%) (Auto) 10 0-12 % Eosinophils (%) (Auto) 2 0-10 % Basophils (%) (Auto) 1 0-10 % Neutrophils # (Auto) 5.8 1.8-7.8 X 10^3 Lymphocytes # (Auto) 1.6 1.0-4.0 X 10^3 Monocytes # (Auto) 0.9 0.0-1.0 X 10^3 Eosinophils # (Auto) 0.2 0.0-0.3 10^3/uL Basophils # (Auto) 0.1 0.0-0.1 10^3/uL Sodium Level 140 135-145 MMOL/L Potassium Level 3.9 3.6-5.0 MMOL/L Chloride Level 106 98-107 MMOL/L Carbon Dioxide Level 22 21-32 MMOL/L Anion Gap 12 5-14 MMOL/L Blood Urea Nitrogen 9 7-18 MG/DL Creatinine 0.67 0.60-1.30 MG/DL Estimat Glomerular Filtration Rate > 60 BUN/Creatinine Ratio 13 Glucose Level 113 H 70-105 MG/DL Calcium Level 9.0 8.5-10.1 MG/DL Magnesium Level 1.4 L 1.8-2.4 MG/DL Troponin I < 0.30 <0.30 NG/ML B-Type Natriuretic Peptide 83.4 <100.0 PG/ML My Orders Orders - KRISTI MCQUEEN MD Basic Metabolic Panel (03/04/18 23:00) BNP (03/04/18 23:00) Cbc With Automated Diff (03/04/18:00) Magnesium (03/04/18 23:00) Troponin I (03/04/18 23:00) Saline Lock/Iv-Start (03/04/18:00) Ekg Tracing (03/04/18:00) Monitor-Rhythm Ecg Trace Only (03/04/18:00) Chest 1 View, Ap/Pa Only (03/04/18 23:00) Metoprolol Tartrate Injection (Lopressor (03/04/18 23:00) Ondansetron Injection (Zofran Injectio (03/04/18 23:00) Magnesium Oxide Tablet (Mag Ox Tablet) (03/05/18 00:00) Rx-Ondansetron Po (Rx-Zofran Po) (03/05/18 00:33) Medications Given in ED Current Medications Medications Dose Ordered Sig/Gladys Route Start Time Stop Time Status Last Admin Dose Admin Magnesium Oxide 400 mg ONCE ONCE PO 03/05/18 00:00 03/05/18 00:01 DC 03/05/18 00:14 400 MG Metoprolol Tartrate 5 mg ONCE ONCE IV 03/04/18 23:00 03/04/18 23:03 DC 03/04/18 23:06 5 MG Ondansetron HCl 4 mg ONCE ONCE IVP 03/04/18 23:00 03/04/18 23:03 DC 03/04/18 23:06 4 MG Vital Signs/I&O Vital Sign - Last 12Hours 03/04/18 03/05/18 22:47 00:44 Temp 95.6 Pulse 89 65 Resp 20 16 B/P (MAP) 100/106 (104) 194/88 Pulse Ox 99 99 O2 Delivery Room Air Room Air Blood Pressure Mean: 104 Progress Note : Progress Note Patient received a dose of Lopressor 5 mg IV. Nausea was treated with Zofran. She took her metoprolol 100 mg orally. Blood pressure and heart rate were monitored and were trending down throughout her ER stay. Symptoms of nausea and headache resolved. Magnesium was slightly low and a dose of oral replacement was given. Initial ECG Impression Date: Mar 04, 2018 Initial ECG Impression Time: 22:50 Initial ECG Rhythm: Normal Sinus Initial ECG Intervals: Normal Initial ECG Impression: Normal Initial ECG Comparisson: Unchanged Comment Sinus rhythm with no ST elevation or depression. No abnormal intervals or axis deviation. Diagonstic Imaging: Xray Plain Films/CT/US/NM/MRI: chest Comments Chest x-ray viewed by me. Report not yet available. No acute abnormalities appreciated. Departure Impression Primary Impression: Hypertensive urgency Additional Impression: Nausea & vomiting Qualified Codes: R11.2 - Nausea with vomiting, unspecified Disposition: HOME, SELF-CARE Condition: Improved Departure-Patient Inst. Decision time for Depature: 00:34 Referrals: KANE MICHEL DO (PCP/Family) Primary Care Physician Patient Instructions: High Blood Pressure Emergencies Add. Discharge Instructions: Continue taking your blood pressure medications as prescribed. Follow-up with Dr. Michel by phone tomorrow morning. If you develop symptoms with your high blood pressure such as blurry vision, headache, vomiting, etc. then please return to the emergency room. Avoid excessive salt or stimulants such as caffeine, decongestant medications, energy drinks, etc. All discharge instructions reviewed with patient and/or family. Voiced understanding. Copy Copies To 1: KANE MICHEL JOSHUA T MD Mar 05, 2018 00:33
[2018-03-05 00:44] VITALS: BP 194/88
--- NOTE | 2018-03-05 05:49 | Diagnostic Imaging Report ---
INDICATION: Hypertension COMPARISON: 01/29/2018 FINDINGS: Single frontal view of the chest demonstrates normal heart size and pulmonary vascularity. The lungs are well aerated and clear. No large pleural effusion or pneumothorax is seen. The visualized osseous structures show no acute abnormalities. IMPRESSION: 1. No acute cardiopulmonary process. Dictated by: Dictated on workstation # [id number]
== END 2018-03-05 00:44 | disposition home or self-care (01) ==
LOC: EDUNIT# 22:44 → ER 22:46
DX: I10 Essential (primary) hypertension (principal); I16.0 Hypertensive urgency; R11.2 Nausea with vomiting, unspecified; E78.00 Pure hypercholesterolemia, unspecified; F32.9 Major depressive disorder, single episode, unspecified; F17.210 Nicotine dependence, cigarettes, uncomplicated; Z88.0 Allergy status to penicillin; Z82.49 Family history of ischemic heart disease and other diseases of the circulatory system; Z79.82 Long term (current) use of aspirin
CPT/HCPCS: 36415; 71045; 80048; 83735; 83880; 84484; 85025; 93005; 96374; 96375

== ENCOUNTER → 2018-03-10 | Outpatient (CLI) | payer BC ==
--- NOTE | 2018-03-10 11:05 | Diagnostic Imaging Report ---
INDICATION: Hypertension. TECHNIQUE: Multiple real-time grayscale images were obtained over the kidneys in various projections. Duplex evaluation of renal arteries was also attempted. FINDINGS: Right kidney measures 9.0 x 3.9 x 4.3 cm, left kidney measures 9.2 x 4.1 x 3.6 cm. Renal cortical thickness and echogenicity appears normal. No calculi are seen. No hydronephrosis is identified. Renal Doppler was also performed. Velocities within the proximal, mid and distal renal arteries bilaterally appears normal. The renal artery to aorta ratios are within normal limits. Waveforms appear to be within normal limits, without evidence of tardus parvus pattern. IMPRESSION: Unremarkable renal ultrasound with renal Doppler. No findings to suggest renal artery stenosis are identified. Dictated by: Dictated on workstation # [id number]
== END ==
LOC: RAD 08:02
PROVIDERS: ATTEND Family Medicine
DX: I10 Essential (primary) hypertension (principal)
CPT/HCPCS: 93975

== ENCOUNTER 2018-07-07 11:03 | Outpatient (RCR) | payer BC | END 2018-08-11 11:13 | disposition home or self-care (01) | PROVIDERS: ATTEND Family Medicine | DX: I69.398 Other sequelae of cerebral infarction (principal); R26.9 Unspecified abnormalities of gait and mobility; Z91.81 History of falling ==

== ENCOUNTER → 2019-09-29 | Outpatient (CLI) | payer MEDICARE, OTHER ==
--- NOTE | 2019-09-29 16:29 | Diagnostic Imaging Report ---
INDICATION: Right foot pain. COMPARISON: None. TECHNIQUE: Duplex, victor-scale and color-flow imaging of the right lower extremity venous system was performed. FINDINGS: The common femoral vein, superficial femoral vein, profunda femoris, and popliteal veins are normal. These vessels show normal compressibility, color flow, and doppler augmentation. The deep calf veins, although not very well seen, demonstrate no distinct intraluminal thrombus. IMPRESSION: Negative venous Doppler of the right lower extremity. Dictated by: Dictated on workstation # [id number]
--- NOTE | 2019-09-29 16:34 | Diagnostic Imaging Report ---
INDICATION: Foot pain and redness around the toes of two weeks' duration. FINDINGS: No bony destructive process or acute periosteal reaction. There is no soft tissue gas or radiopaque foreign body. There are some lucencies at the distal first metatarsal head, believed to be on a degenerative basis. No radiopaque foreign body. No fracture. IMPRESSION: No acute finding is identified. Dictated by: Dictated on workstation # [id number]
== END ==
LOC: RAD 15:55
PROVIDERS: ATTEND Nurse Practitioner Family
DX: M79.671 Pain in right foot (principal); L53.9 Erythematous condition, unspecified
CPT/HCPCS: 73630

== ENCOUNTER → 2021-10-29 | Outpatient (CLI) | payer MEDICARE, OTHER ==
[~2021-10-29] MED LIST changes: -ENAL20TA PO; +ENAL20TA16 PO; -METO-370 PO; -METO-387; +METO50TA7 PO; +MTP25TSR
--- NOTE | 2021-10-29 17:04 | Diagnostic Imaging Report ---
EXAMINATION: Left foot at 3:52 p.m. INDICATION: Left foot pain. Three views were obtained. There are no prior studies available for comparison. FINDINGS: There is a vague lucency along the lateral aspect of the base of the proximal phalanx of the fifth digit. I suspect that this is more likely due to degenerative cyst formation than to a fracture as there is at least moderate narrowing of the fifth metatarsophalangeal joint. Even so, clinical follow-up is recommended. No other fracture or acute bony abnormality is noted. There are moderate degenerative changes involving the metatarsophalangeal joints and the phalanges as well as the midfoot. There is also a small calcaneal spur. The Lisfranc joint appears to be intact. The soft tissues are unremarkable. IMPRESSION: 1. The small area of diminished density along the lateral aspect of the base of the proximal phalanx of the fifth digit is more likely due to degenerative disease than to a nondisplaced fracture. Clinical follow-up is recommended. 2. There is no acute bony abnormality noted otherwise. Dictated by: Dictated on workstation # [id number]
== END ==
LOC: RAD 15:32
PROVIDERS: ATTEND Family Medicine
DX: M79.672 Pain in left foot (principal); M79.89 Other specified soft tissue disorders
CPT/HCPCS: 73630

== ENCOUNTER 2021-12-12 14:07 | Emergency (ER) | payer MEDICARE, OTHER ==
[~2021-12-12] VITALS: Ht 157.5 cm; Wt 63.0 kg
[2021-12-12] MEDS ORDERED: LACTATED RINGERS 1,000 ML IV SCH (14:15)
--- NOTE | 2021-12-12 14:16 | ED General ---
General Stated Complaint: SYNCOP Source of Information: Patient Exam Limitations: No Limitations History of Present Illness Date Seen by Provider: Dec 12, 2021 Time Seen by Provider: 14:12 Initial Comments To ER by EMS from [facility] where she was out with reports of syncope x3. Upon EMS arrival she was nonresponsive. No history of this and she awakened feeling fine this morning. No illnesses and she is feeling better now. She was incontinent of bowel and bladder in route to the hospital. No history of this. She is diabetic. Initial blood pressure was in the 80s systolic EMS established an IV and started a liter of normal saline in route to the hospital. She does have a laceration of the back of her head from one of the falls. Timing/Duration: 4-6 Hours Severity: Moderate Associated Systoms: Denies Symptoms Allergies and Home Medications Allergies Coded Allergies: Penicillins (Verified Allergy, Unknown, 12/06/07) Patient Home Medication List Home Medication List Reviewed: Yes Aspirin (Aspirin) 325 Mg Tablet, 325 MG PO DAILY, (Reported) Entered as Reported by: ANAND RODRIGUEZ on 01/11/182032 Enalapril Maleate (Enalapril Maleate) 20 Mg Tablet, 20 MG PO BID, (Reported) Entered as Reported by: ANAND RODRIGUEZ on 01/11/182032 Hydralazine HCl (Hydralazine HCl) 10 Mg Tablet, 10 MG PO Q8HR Prescribed by: PERLITA YOUNG on 01/31/18 1307 Metoprolol Succinate (Metoprolol Succinate) 50 Mg Tab.er.24h, 50 MG PO DAILY, (Reported) Entered as Reported by: AN BROWNLEE on 01/29/18 1251 Metoprolol Succinate (Metoprolol Succinate) 50 Mg Tab.er.24h, 100 MG PO 1700, (Reported) Entered as Reported by: AN BROWNLEE on 01/29/18 1251 Pravastatin Sodium (Pravastatin Sodium) 80 Mg Tablet, 80 MG PO DAILY, (Reported) Entered as Reported by: ANAND RODRIGUEZ on 01/11/182032 Venlafaxine HCl (Venlafaxine HCl ER) 75 Mg Tab.er.24, 75 MG PO DAILY, (Reported) Entered as Reported by: ANAND RODRIGUEZ on 01/11/182032 Review of Systems Review of Systems Constitutional: see HPI EENTM: see HPI Respiratory: no symptoms reported Cardiovascular: see HPI, syncope Genitourinary: no symptoms reported Musculoskeletal: no symptoms reported Skin: no symptoms reported Psychiatric/Neurological: No Symptoms Reported Hematologic/Lymphatic: No Symptoms Reported Past Ulvevfp-Leaitb-Libmff Hx Seasonal Allergies Seasonal Allergies: No Past Medical History Surgeries: No Respiratory: No Cardiac: Yes Heart Murmur, High Cholesterol, Hypertension, Valvular Heart Disease Neurological: Yes Stroke Reproductive Disorders: No [employer] History: Menopausal Sexually Transmitted Disease: No HIV/AIDS: No Genitourinary: No Gastrointestinal: No Musculoskeletal: No Endocrine: No HEENT: No Loss of Vision: Denies Hearing Impairment: Denies Cancer: No Psychosocial: Yes Depression Integumentary: No Blood Disorders: No Family Medical History Heart Disease, Hypertension Physical Exam Vital Signs Vital Signs - First Documented 12/12/21 14:07 Temp 36.1 Pulse 58 Resp 16 B/P (MAP) 95/49 (64) O2 Delivery Room Air Capillary Refill : Height, Weight, BMI Height: 5'2.00" Weight: 142lbs. 2.0oz. [id number]; 25.6 BMI Method:Stated General Appearance: No Apparent Distress, WD/WN, Other (Alert and oriented GCS 15 very pleasant. EKG shows sinus rhythm at 57. Her current blood pressure is 95/49 with the first liter of fluids infusing. Oxygen 1 high percent room air. Abdomen flat soft nontender no chest pain no shortness of breath.) Eyes: Bilateral Eye Normal Inspection, Bilateral Eye PERRL, Bilateral Eye EOMI Respiratory: No Accessory Muscle Use, No Respiratory Distress Cardiovascular: Regular Rate, Rhythm, Normal Peripheral Pulses Gastrointestinal: Normal Bowel Sounds, Non Tender, Soft Extremity: Normal Capillary Refill, Normal Inspection Neurologic/Psychiatric: Alert, Oriented x3 Skin: Normal Color, Warm/Dry Focused Exam Lactate Level 12/12/21 15:23: Lactic Acid Level Laboratory Tests Test 12/12/21 15:23 Procedures/Interventions Wound Location: Scalp Wound Length (cm): 0.5 Wound's Depth, Shape: linear, sub Q Wound Explored: clean Anesthesia: Lidocaine w/ Epi 2 padma placed Progress/Results/Core Measures Suspected Sepsis SIRS Temperature: Pulse: Respiratory Rate: Laboratory Tests 12/12/21 14:05: White Blood Count 13.4H Blood Pressure / Mean: 12/12/21 15:23: Laboratory Tests 12/12/21 14:05: Creatinine 1.29, INR Comment 1.0, Platelet Count 375, Total Bilirubin 0.5 Results/Orders Lab Results Laboratory Tests Test 12/12/21 14:05 12/12/21 15:23 Range/Units White Blood Count 13.4 H 4.3-11.0 10^3/uL Red Blood Count 5.09 3.80-5.11 10^6/uL Hemoglobin 15.2 11.5-16.0 g/dL Hematocrit 44 35-52 % Mean Corpuscular Volume 87 80-99 fL Mean Corpuscular Hemoglobin 30 25-34 pg Mean Corpuscular Hemoglobin Concent 35 32-36 g/dL Red Cell Distribution Width 14.4 10.0-14.5 % Platelet Count 375 130-400 10^3/uL Mean Platelet Volume 9.6 9.0-12.2 fL Immature Granulocyte % (Auto) 1 % Neutrophils (%) (Auto) 59 42-75 % Lymphocytes (%) (Auto) 28 12-44 % Monocytes (%) (Auto) 9 0-12 % Eosinophils (%) (Auto) 2 0-10 % Basophils (%) (Auto) 1 0-10 % Neutrophils # (Auto) 8.0 H 1.8-7.8 10^3/uL Lymphocytes # (Auto) 3.8 1.0-4.0 10^3/uL Monocytes # (Auto) 1.2 H 0.0-1.0 10^3/uL Eosinophils # (Auto) 0.3 0.0-0.3 10^3/uL Basophils # (Auto) 0.1 0.0-0.1 10^3/uL Immature Granulocyte # (Auto) 0.1 0.0-0.1 10^3/uL Prothrombin Time 13.3 12.2-14.7 SEC INR Comment 1.0 0.8-1.4 Activated Partial Thromboplast Time 27 24-35 SEC Sodium Level 141 135-145 MMOL/L Potassium Level 3.4 L 3.6-5.0 MMOL/L Chloride Level 105 98-107 MMOL/L Carbon Dioxide Level 18 L 21-32 MMOL/L Anion Gap 18 H 5-14 MMOL/L Blood Urea Nitrogen 13 7-18 MG/DL Creatinine 1.29 0.60-1.30 MG/DL Estimat Glomerular Filtration Rate 44 BUN/Creatinine Ratio 10 Glucose Level 112 H 70-105 MG/DL Calcium Level 9.8 8.5-10.1 MG/DL Corrected Calcium 9.6 8.5-10.1 MG/DL Magnesium Level 2.0 1.6-2.4 MG/DL Total Bilirubin 0.5 0.1-1.0 MG/DL Aspartate Amino Transf (AST/SGOT) 17 5-34 U/L Alanine Aminotransferase (ALT/SGPT) 9 0-55 U/L Alkaline Phosphatase 95 40-136 U/L Myoglobin 69.4 10.0-92.0 NG/ML Troponin I < 0.028 <0.028 NG/ML B-Type Natriuretic Peptide 79.4 <100.0 PG/ML Total Protein 7.4 6.4-8.2 GM/DL Albumin 4.2 3.2-4.5 GM/DL Beta-Hydroxybutyrate (Chem panel) 0.41 H 0.00-0.27 MMOL/L My Orders Orders - MAULIK GARCIA APRN Cbc With Automated Diff (12/12/21 14:11) Magnesium (12/12/21 14:11) Chest 1 View, Ap/Pa Only (12/12/21 14:11) Ekg Tracing (12/12/21 14:11) Comprehensive Metabolic Panel (12/12/21 14:11) Myoglobin Serum (12/12/21 14:11) Protime With Inr (12/12/21 14:11) Partial Thromboplastin Time (12/12/21 14:11) O2 (12/12/21 14:11) Monitor-Rhythm Ecg Trace Only (12/12/21 14:11) Lipid Panel (12/13/21 06:00) Ed Iv/Invasive Line Start (12/12/21 14:11) Bnp Robertson (12/12/21 14:11) Troponin I Jose (12/12/21 14:11) Ct Head/Cervical Spine Wo (12/12/21 14:11) Lactated Ringers (Lr 1000 Ml Iv Solution (12/12/21 14:15) Beta Hydroxybutyrate (12/12/21 14:42) Lactic Acid Analyzer (12/12/21 14:42) Dipht,Pertuss(Acell),Tet Adult (Boostrix (12/12/21 15:45) Vital Signs/I&O 12/12/21 14:07 Temp 36.1 Pulse 58 Resp 16 B/P (MAP) 95/49 (64) O2 Delivery Room Air Capillary Refill : Departure Communication (Admissions) NAME: DANIELLE MARINELLI REC#: [id number] PT STATUS: REG ER : 1945 PHYSICIAN: MAULIK GARCIA APRN ADMIT DATE: 12/12/21/ER Signed Date of Exam:12/12/21 CT HEAD/CERVICAL SPINE WO PROCEDURE: CT head and CT cervical spine without contrast. TECHNIQUE: Multiple contiguous axial images were obtained through the brain and cervical spine without the use of intravenous contrast. Sagittal and coronal reformations through the cervical spine were then performed. Auto Exposure Controls were utilized during the CT exam to meet ALARA standards for radiation dose reduction. INDICATION: Syncopal episode. Fall. Head and neck pain. Scalp laceration. COMPARISON: 04/14/2018. FINDINGS: CT head: No large acute territorial ischemia, mass, or hemorrhage. Calcification is seen in the lateral right frontal lobe in an area of previous parenchymal hemorrhage. Scattered chronic microvascular disease is seen in the periventricular and subcortical white matter. No midline shift or mass effect. The ventricles, cortical sulci, and basilar cisterns are patent and unremarkable. The calvarium is intact. Scalp contusion is seen overlying the left occipital region. The visualized paranasal sinuses are clear. CT cervical spine: No acute fracture or dislocation is seen in the cervical spine. No focal osseous lesions. There is reversal of the normal lordotic curvature of the cervical spine centered at the C5 level. Vertebral body heights are well-maintained. The craniocervical junction is well-maintained. Dystrophic calcification is seen anterior to the C1-C2 junction, left of midline. Moderate degenerative changes are seen in the cervical spine with disc osteophyte complexes and uncovertebral arthropathy. Soft tissues of the neck are unremarkable. IMPRESSION: 1. No hemorrhage or focal intra-axial mass. No CT evidence of large acute territorial ischemia. 2. No acute fracture or dislocation in the cervical spine. 3. Calcification within the lateral right frontal lobe representing sequelae of prior parenchymal hemorrhage. 4. Scattered chronic microvascular disease. 5. Scalp contusion overlying the left occipital region. No associated calvarial fracture. Dictated by: Dictated on workstation # [id number] Dict: 12/12/21 1457 Trans: 12/12/21 1505 [id number] Interpreted by: JENNIFER ARRIETA DO Electronically signed by: JENNIFER ARRIETA DO 12/12/21 1505 Family Conversation NAME: DANIELLE MARINELLI [facility] REC#: [id number] PT STATUS: REG ER : 1945 PHYSICIAN: MAULIK GARCIA APRN ADMIT DATE: 12/12/21/ER Signed Date of Exam:12/12/21 CHEST 1 VIEW, AP/PA ONLY EXAMINATION: Chest, one view. HISTORY: Chest pain. COMPARISON: 04/14/2018. FINDINGS: The lung volumes are normal. No focal consolidation is seen. No large pleural effusion or pneumothorax is seen. The cardiomediastinal silhouette is normal in size and contour. No acute osseous abnormality is seen. IMPRESSION: 1. No acute pleural-parenchymal process. Dictated by: Dictated on workstation # [id number] Dict: 12/12/21 1505 Trans: 12/12/21 1518 [id number] Interpreted by: JENNIFER ARRIETA DO Electronically signed by: JENNIFER ARRIETA DO 12/12/21 1518 Her EKG shows sinus rhythm at 57 with a prolonged QT interval at 512 ms for the QTC. However it was prolonged a couple of years ago when she was here as well. She denies any preceding palpitations or chest pain or shortness of breath. 1546-patient's is at the bedside she is alert and states that she feels much better. I gave her 2 options, the first being go home and follow-up with primary care. Before even offering the second, she states "that is the 1 I want!". I also offered her admission for observation to help determine cause of her recurrent syncope today. She assures me that she will come back if she has any worsening or recurrent symptoms and is at the bedside and also asked her if she was sure she did not want to stay. She states "no". Asked her how she feels and she states "I feel fabulous!" She states that she feels back to her normal self and without any symptoms. She is very pleasant alert and oriented GCS 15. is at the bedside. She is capable of making this decision. Since she is adamant that she does not want to stay in the hospital I did arrange a follow-up appointment for her with Dr. Gutierrez clinic tomorrow at 9:45 AM. Impression Primary Impression: Syncope Additional Impression: Scalp laceration Disposition: 01 HOME, SELF-CARE Condition: Stable Departure-Patient Inst. Decision time for Depature: 15:48 Referrals: KANE MICHEL DO (PCP/Family) Primary Care Physician Patient Instructions: Laceration Repair With [place] (DC), Syncope (Fainting) (DC) Add. Discharge Instructions: 1. Return promptly to the emergency room for any recurrent or worsening symptoms. I have made an appointment for you with Dr. MICHEL's clinic tomorrow at 9:45 AM for recheck. Copy Copies To 1: KANE MICHEL PETER J APRN Dec 12, 2021 14:16
[2021-12-12 14:24] LABS: BASOPHILS # (AUTO) 0.1 10^3/uL (0.0-0.1); BASOPHILS % (AUTO) 1 % (0-10); EOSINOPHILS # (AUTO) 0.3 10^3/uL (0.0-0.3); EOSINOPHILS % (AUTO) 2 % (0-10); HEMATOCRIT 44 % (35-52); HEMOGLOBIN 15.2 g/dL (11.5-16.0); LYMPHOCYTES # (AUTO) 3.8 10^3/uL (1.0-4.0); LYMPHOCYTES % (AUTO) 28 % (12-44); MEAN CORPUSCULAR HEMOGLOBIN 30 pg (25-34); MEAN CORPUSCULAR HGB CONC 35 g/dL (32-36); MEAN CORPUSCULAR VOLUME 87 fL (80-99); MEAN PLATELET VOLUME 9.6 fL (9.0-12.2); MONOCYTES # (AUTO) 1.2 10^3/uL (0.0-1.0); MONOCYTES % (AUTO) 9 % (0-12); NEUTROPHILS % (AUTO) 59 % (42-75); PLATELET COUNT 375 10^3/uL (130-400); WHITE BLOOD COUNT 13.4 10^3/uL (4.3-11.0)
[2021-12-12 14:37] LABS: ALBUMIN 4.2 GM/DL (3.2-4.5)
[2021-12-12 14:38] LABS: POTASSIUM 3.4 MMOL/L (3.6-5.0); PROTHROMBIN TIME PATIENT 13.3 SEC (12.2-14.7)
[2021-12-12 14:39] LABS: CALCIUM 9.8 MG/DL (8.5-10.1)
[2021-12-12 14:40] LABS: TOTAL PROTEIN 7.4 GM/DL (6.4-8.2)
[2021-12-12 14:42] LABS: BILIRUBIN,TOTAL 0.5 MG/DL (0.1-1.0)
[2021-12-12 14:44] LABS: CREATININE SERUM 1.29 MG/DL (0.60-1.30)
--- NOTE | 2021-12-12 15:03 | Diagnostic Imaging Report ---
PROCEDURE: CT head and CT cervical spine without contrast. TECHNIQUE: Multiple contiguous axial images were obtained through the brain and cervical spine without the use of intravenous contrast. Sagittal and coronal reformations through the cervical spine were then performed. Auto Exposure Controls were utilized during the CT exam to meet ALARA standards for radiation dose reduction. INDICATION: Syncopal episode. Fall. Head and neck pain. Scalp laceration. COMPARISON: 04/14/2018. FINDINGS: CT head: No large acute territorial ischemia, mass, or hemorrhage. Calcification is seen in the lateral right frontal lobe in an area of previous parenchymal hemorrhage. Scattered chronic microvascular disease is seen in the periventricular and subcortical white matter. No midline shift or mass effect. The ventricles, cortical sulci, and basilar cisterns are patent and unremarkable. The calvarium is intact. Scalp contusion is seen overlying the left occipital region. The visualized paranasal sinuses are clear. CT cervical spine: No acute fracture or dislocation is seen in the cervical spine. No focal osseous lesions. There is reversal of the normal lordotic curvature of the cervical spine centered at the C5 level. Vertebral body heights are well-maintained. The craniocervical junction is well-maintained. Dystrophic calcification is seen anterior to the C1-C2 junction, left of midline. Moderate degenerative changes are seen in the cervical spine with disc osteophyte complexes and uncovertebral arthropathy. Soft tissues of the neck are unremarkable. IMPRESSION: 1. No hemorrhage or focal intra-axial mass. No CT evidence of large acute territorial ischemia. 2. No acute fracture or dislocation in the cervical spine. 3. Calcification within the lateral right frontal lobe representing sequelae of prior parenchymal hemorrhage. 4. Scattered chronic microvascular disease. 5. Scalp contusion overlying the left occipital region. No associated calvarial fracture. Dictated by: Dictated on workstation # [id number]
--- NOTE | 2021-12-12 15:07 | Diagnostic Imaging Report ---
EXAMINATION: Chest, one view. HISTORY: Chest pain. COMPARISON: 04/14/2018. FINDINGS: The lung volumes are normal. No focal consolidation is seen. No large pleural effusion or pneumothorax is seen. The cardiomediastinal silhouette is normal in size and contour. No acute osseous abnormality is seen. IMPRESSION: 1. No acute pleural-parenchymal process. Dictated by: Dictated on workstation # [id number]
[2021-12-12] MEDS ORDERED: TETANUS,DIPTH,PERTUSS P/F (BOOSTRIX) 0.5 ML VIAL IM ONE (15:45)
[2021-12-12 16:04] VITALS: BP 132/68
== END 2021-12-12 16:04 | disposition home or self-care (01) ==
LOC: EDUNIT# 14:07 → ER 14:08
DX: S01.01XA Laceration without foreign body of scalp, initial encounter (principal); R55 Syncope and collapse; I10 Essential (primary) hypertension; E78.00 Pure hypercholesterolemia, unspecified; F32.9 Major depressive disorder, single episode, unspecified; E11.9 Type 2 diabetes mellitus without complications; Z86.73 Personal history of transient ischemic attack (TIA), and cerebral infarction without residual deficits; Z79.82 Long term (current) use of aspirin; Z79.899 Other long term (current) drug therapy; W19.XXXA Unspecified fall, initial encounter
CPT/HCPCS: 36415; 70450; 71045; 72125; 80053; 82010; 83605; 83735; 83874; 83880; 84484; 85025; 85610; 85730; 93005; 93041

== ENCOUNTER 2021-12-19 13:54 | Emergency (ER) | payer MEDICARE, OTHER ==
[2021-12-19 15:03] VITALS: BP 0/0
== END 2021-12-19 15:03 | disposition home or self-care (01) ==
LOC: EDUNIT# 13:54 → ER 13:55
DX: Z48.02 Encounter for removal of sutures (principal)